=== PATIENT | female | born 1975 | race Caucasian/White ===

== ENCOUNTER 2019-12-14 07:08 | Outpatient (CLI) | payer OTHER, SELFPAY | END 2019-12-14 07:28 | PROVIDERS: Visit Provider Pediatrics Pediatric Rheumatology | DX: Z02.71 Encounter for disability determination (principal); R06.09 Other forms of dyspnea | CPT/HCPCS: 94618 ==

== ENCOUNTER 2020-04-12 12:58 | Emergency (ER) | payer MEDICAID, SELFPAY ==
[2020-04-12 13:06] VITALS: BP 159/104; PULSE 105; RESP 18; TEMP 36.6; O2SAT 98
[2020-04-12 13:12] VITALS: BP 119/81
--- NOTE | 2020-04-12 13:30 | DI.RAD_ITS ---
EXAM: XR SACRUM COCCYX CLINICAL HISTORY: fall/pain. TECHNIQUE: 2D digital imaging was performed. COMPARISON: CR LUMBAR SPINE AP, LAT from 08/04/2013 FINDINGS: BONES: No acute fracture is present. No bony destructive lesion is seen. There is no change in alignm ent of the sacrum compared to the examination from 08/04/2013. JOINTS: No dislocation present. The sacroiliac joints are well maintained. SOFT TISSUE: Atherosclerosis of the abdominal aorta is noted. IMPRESSION: No acute fracture or subluxation. DATA REPOSITORY: RADIATION DOSE DELIVERED:
--- NOTE | 2020-04-12 13:30 | DI.RAD_ITS ---
EXAM: XR LUMBAR SPINE COMPLETE CLINICAL HISTORY: fall/pain. TECHNIQUE: 2D digital imaging was performed. COMPARISON: No exams were available for comparison FINDINGS: There are 5 lumbar type vertebral bodies. There is no spondylolysis or spondylolisthesis. No acute fractures or subluxations are seen. Mild degenerative changes are present throughout the lumbar spin e. The bones are normally mineralized. Atherosclerosis of the abdominal aorta is noted. IMPRESSION: No acute fractures or subluxations in the lumbar spine. DATA REPOSITORY: RADIATION DOSE DELIVERED:
--- NOTE | 2020-04-12 14:18 | ED.GENADUL_ITS ---
Discharge Plan Disposition Patient Disposition: HOME Condition: Stable Discharge Details Clinical Impression: Lumbar pain Primary Care Provider: Jenn,Local ED Provider: Duncan Durand Home Meds and New Rx's Prescriptions: New oxycodone-acetaminophen [Percocet] 5-325 mg tablet 1 tab PO Q8H PRNQty: 8 RF: 0 Continued epinephrine [EpiPen 2-Seven] 0.3 MG/0.3 ML auto-injector 0.3 mg IM DIRECTED PRNRF: 0 isosorbide mononitrate 30 mg tablet extended release 24 hr 30 mg PO DAILY RF: 0 melatonin 3 mg Tablet 9 mg PO HS RF: 0 clopidogrel 75 mg tablet 75 mg PO DAILY RF: 0 acetaminophen [Tylenol Extra Strength] 500 mg Tablet 1,000 mg PO Q4-5H RF: 0 nitroglycerin 0.4 mg Tablet, Sublingual 0.4 mg sublingual Q5 MIN PRN X3 PRNRF: 0 hydroxyzine HCl 25 mg tablet 25 mg PO HS RF: 0 ezetimibe 10 mg tablet 10 mg PO HS RF: 0 rosuvastatin 40 mg tablet 40 mg PO DAILY RF: 0 diclofenac sodium [Voltaren] 1 % Gel 3 applic TOPICAL TID RF: 0 Entresto 24-26 mg Tablet 0.5 tab PO BID RF: 0 aspirin 81 mg Capsule,Delayed Release(Dr/Ec) 81 mg PO DAILY RF: 0 furosemide 20 mg tablet See Rx Instructions .ROUTE .COMPLEX PRNRF: 0 metoprolol succinate [Toprol XL] 25 mg Tablet Extended Release 24 Hr 25 mg PO BID RF: 0 Discharge Instructions Instructions: Back Pain (ED) Additional Instructions: X-rays were unremarkable. Percocet as directed, may cause drowsiness and/or constipation. Continue taking your spvs-hiu-hatooff stool softener. Be sure to not take any more than a total of 4 g of Tylenol by mouth per day. [id number] Lidoderm patches as directed for discomfort. Cool and/or warm compresses every 2 hours for 20 minutes. Gentle stretching as tolerated. Please watch for new or worsening symptoms and return to the ER for any concerns. Lastly, I would like you to reach out your primary care provider later today or tomorrow for prompt outpatient reevaluation. Medical Decision Making 44-year-old female presents complaining of lumbar pain status post mechanical fall yesterday evening. Denies any distracting injuries. She has neuro, vascular, tendon intact. No evidence of midline point tenderness, cauda equina, radiculopathy, etc. She has taken Tylenol without much relief. Pelvis appears unremarkable. Will obtain x-ray of her lumbar spine, coccyx, sacrum. She does report that standing makes the pain better, sitting makes the pain worse. She cannot take anti-inflammatory medication. X-ray of lumbar spine, coccyx, sacrum, read by radiology as no acute abnormality. Discussed x-ray findings with patient. She is relieved. Will provide a short- term prescription of Percocet for her. She already takes [id number] stool softeners. She has been taking Tylenol, she will not take more than 4 g total p er 1 given day. She cannot take anti-inflammatories. We discussed cool compresses, warm compresses, gentle stretching. She will also use [id number] Lidoderm patch. Patient is neurologically intact. No acute distress. No additional questions or concerns, comfortable discharge. Medical Records Medical records reviewed: Yes I reviewed the patient's medical records. HPI General Mode of arrival: ambulatory . Date/Time Provider Initiated Documentation: 04/12/20 13:16 . Limitations to Documentation: no limitations . Information obtained by: patient . HPI Narrative: This is a 44-year-old female, past medical history that includes TX, CABG, takes Plavix, obesity, chronic back pain, seizures, presenting to the ER for evaluation of back pain. She states that yesterday evening she was wearing slippers, slipped on ice on stairs, landing directly onto her lower back. She attempted to catch herself with her arms and sophia her shoulders. She reports that her shoulders are sore but not her reason to come to the ER. She reports that she has diffuse lower back pain but no other distracting injuries. Denies radiation of her pain, numbness, tingling, weakness in her lower extremities. She did not strike her head. No LOC, headache, neck pain. Denies bowel or bladder incontinence or retention. Has taken [id number] Tylenol without control of her symptoms. She states that she cannot take anti-inflammatories. Related Data Home Medications Medication Instructions Recorded Confirmed epinephrine [EpiPen 2-Seven] 0.3 mg IM DIRECTED PRN 04/16/16 04/12/20 Entresto 0.5 tab PO BID 04/12/20 04/12/20 acetaminophen [Tylenol Extra 1,000 mg PO Q4-5H 04/12/20 04/12/20 Strength] aspirin 81 mg PO DAILY 04/12/20 04/12/20 clopidogrel 75 mg PO DAILY 04/12/20 04/12/20 diclofenac sodium [Voltaren] 3 applic TOPICAL TID 04/12/20 04/12/20 ezetimibe 10 mg PO HS 04/12/20 04/12/20 furosemide See Rx Instructions .ROUTE 04/12/20 04/12/20 .COMPLEX PRN hydroxyzine HCl 25 mg PO HS 04/12/20 04/12/20 isosorbide mononitrate 30 mg PO DAILY 04/12/20 04/12/20 melatonin 9 mg PO HS 04/12/20 04/12/20 metoprolol succinate [Toprol XL] 25 mg PO BID 04/12/20 04/12/20 nitroglycerin 0.4 mg SUBLINGUAL Q5 MIN PRN X3 PRN 04/12/20 04/12/20 oxycodone-acetaminophen [Percocet] 1 tab PO Q8H PRN #8 tab 04/12/20 rosuvastatin 40 mg PO DAILY 04/12/20 04/12/20 Previous Rx's Medication Instructions Recorded oxycodone-acetaminophen [Percocet] 1 tab PO Q8H PRN #8 tab 04/12/20 Allergies Allergy/AdvReac Type Severity Reaction Status Date / Time bee pollen Allergy Severe Anaphylaxsi Unverified 04/12/20 13:11 s mushroom Allergy Severe Anaphylaxsi Unverified 04/12/20 13:11 s Penicillins Allergy Severe Anaphylaxsi Unverified 04/12/20 13:11 s doxycycline Allergy Intermediate Hives Unverified 04/12/20 13:11 sumatriptan [From Imitrex] Allergy Intermediate Skin Rash Unverified 04/12/20 13:11 sumatriptan succinate Allergy Intermediate Skin Rash Unverified 04/12/20 13:11 [From Imitrex] tramadol Allergy Intermediate Hives Unverified 04/12/20 13:11 erythromycin base Allergy Mild Hives Unverified 04/12/20 13:11 [Erythromycin Base] General Stated Complaint: Nk/Back Pain JACIEL: 3 Review of Systems Constitutional Constitutional: Denies headache(s) ENT Ears, Nose, Mouth, and Throat: Denies headache(s) and Denies neck pain Cardiovascular Cardiovascular: Denies chest pain and Denies dyspnea Respiratory Respiratory: Denies dyspnea Gastrointestinal Gastrointestinal: Denies abdominal pain, Denies nausea and Denies vomiting Musculoskeletal Musculoskeletal: Reports back pain, Denies neck pain, Denies numbness and Denies tingling Integumentary/Breasts Skin/Breast: Denies rash Neurologic Neurologic: Denies headache(s), Denies numbness and Denies tingling [facility] Medical History Chronic back pain Hidradenitis axillaris Obesity Seizures Surgical History Abdominal hysterectomy Appendectomy Bilateral salpingectomy with oophorectomy section Cholecystectomy Social History Smoking/Tobacco Use Status: Former Tobacco Use Smoking risk assessment performed?: Yes Alcohol Intake: never Drug use: Never Substance use type: does not use Do you feel safe at home: Yes Do you feel safe in your relationship?: Yes Exam Const General: cooperative, healthy appearing, comfortable and no acute distress Orientation: alert and awake [facility] Head: normal to inspection, normocephalic and atraumatic Eyes General: appearance normal, both eyes and all related structures Conjunctivae: conjunctivae normal Sclera: sclerae normal Neck Neck: normal visual inspection, full ROM, trachea midline, supple and nontender Resp Effort & Inspection: normal respiratory effort and able to speak in complete sentences Auscultation: clear to auscultation bilaterally Cardio Rate: regular rate Rhythm: regular rhythm GI Inspection: obesity Palpation: soft and nontender Back/Spine/Pelvis Back: back tenderness Pelvis: no pain with anterior-posterior compression and no pain with lateral compression Back/spine/pelvis image: 1. Diffuse discomfort, no bony point tenderness. 2. Hematoma-contusion. Skin intact Skin General skin exam: no rashes or lesions noted Neuro General: patient alert, patient awake, moves all extremities and no focal motor deficits Cognition: normal cognition Speech: speech normal Gait: antalgic Motor: muscle tone normal throughout Sensory Exam: no sensory deficits noted Extrem General: normal to inspection, full ROM, capillary refill normal, no pedal edema and no calf tenderness Psych Appearance: grossly normal Mental Status: mental status grossly normal Course Vital Signs Vital signs: Vital Signs Temperature 36.6 C 04/12/20 13:06 Pulse 105 H 04/12/20 13:06 Respiratory Rate 18 04/12/20 13:06 Blood Pressure 159/104 H 04/12/20 13:06 Pulse Oximetry 98 04/12/20 13:06 Temperature 36.6 C 04/12/20 13:06 Temperature Source Skin 04/12/20 13:06 Pulse 105 H 04/12/20 13:06 Respiratory Rate 18 04/12/20 13:06 Respiratory Effort Non-Labored 04/12/20 13:10 Blood Pressure 119/81 04/12/20 13:12 Blood Pressure Position Standing 04/12/20 13:06 Pulse Oximetry 98 04/12/20 13:06 Oxygen Delivery Method Room Air 04/12/20 13:06 Oxygen Flow Rate 0 04/12/20 13:06 Pain Level 8 04/12/20 13:50
[2020-04-12 14:28] VITALS: PULSE 95; RESP 14; TEMP 36.7; O2SAT 98
== END 2020-04-12 14:30 | disposition home or self-care (01) ==
PROVIDERS: Emergency Provider Physician Assistant
DX: M54.5 Low back pain (principal); M53.3 Sacrococcygeal disorders, not elsewhere classified; W00.1XXA Fall from stairs and steps due to ice and snow, initial encounter
CPT/HCPCS: 99284; 72110; 72220

== ENCOUNTER 2020-04-30 11:52 | Emergency (ER) | payer MEDICAID, SELFPAY ==
--- NOTE | 2020-04-30 11:53 | ED.GENADUL_ITS ---
Discharge Plan Disposition Patient Disposition: HOME Condition: Fair Discharge Details Clinical Impression: Lumbar pain, Tachycardia Primary Care Provider: Jenn,Local ED Provider: Samantha Hdz Home Meds and New Rx's Prescriptions: New oxycodone 5 mg capsule 5 mg PO TID PRN (Reason: pain) Qty: 7 RF: 0 Continued epinephrine [EpiPen 2-Seven] 0.3 MG/0.3 ML auto-injector 0.3 mg IM DIRECTED PRNRF: 0 isosorbide mononitrate 30 mg tablet extended release 24 hr 30 mg PO DAILY RF: 0 melatonin 3 mg Tablet 9 mg PO HS RF: 0 clopidogrel 75 mg tablet 75 mg PO DAILY RF: 0 acetaminophen [Tylenol Extra Strength] 500 mg Tablet 1,000 mg PO Q4-5H RF: 0 nitroglycerin 0.4 mg Tablet, Sublingual 0.4 mg sublingual Q5 MIN PRN X3 PRNRF: 0 hydroxyzine HCl 25 mg tablet 25 mg PO HS RF: 0 ezetimibe 10 mg tablet 10 mg PO HS RF: 0 rosuvastatin 40 mg tablet 40 mg PO DAILY RF: 0 Entresto 24-26 mg Tablet 0.5 tab PO BID RF: 0 aspirin 81 mg Capsule,Delayed Release(Dr/Ec) 81 mg PO DAILY RF: 0 metoprolol succinate [Toprol XL] 25 mg Tablet Extended Release 24 Hr 25 mg PO BID RF: 0 oxycodone-acetaminophen [Percocet] 5-325 mg tablet 1 tab PO Q8H PRNQty: 8 RF: 0 Discontinued tramadol 50 mg tablet 50 mg PO Q6H RF: 0 Discharge Instructions Instructions: Low Back Strain (ED) Additional Instructions: I am very concerned regarding her persistent severe back pain. I do feel that further imaging is warranted. You have declined this today. You may return anytime for further evaluation and imaging. I am also concerned that you are quite tachycardic. This may be associated with your metoprolol but also could be associated with something more serious in your back. I did speak with your primary care. They would like you to stop the tramadol. They are okay with you taking small amounts of oxycodone but would like for you to taper off of this medication. Please continue with nonnarcotic options first including Tylenol and lidocaine patches. Please encourage gentle stretching. Do not drive while taking this medication. Beginning tomorrow, please cut pills in have and take 2.5mg three times per day for pain not relieved by non-narcotic medications. Please call your primary care on Saturday to schedule appointment this week for reevaluation. If you develop fever/chills, increased pain, change in bowel or bladder habits, weakness or other new/worsening symptoms please seek care urgently once again. Referrals: KYMBERLY LOBATO MD [Other] Medical Decision Making Patient is a 44 year old female presenting for reevaluation and prescription refill for lumbar back pain. Patient was seen here on 04/12/20 after mechanical fall. At that time, she had a hematoma over lower lumbarspine/sacrum. X-rays were obtained at that time with no fracture or subluxation noted. Patient has had severe pain since then. Was continued on oxycodone by PCP at [facility] since then. She has been evaluated by them, was last seen on04/28/20. Patient was transitioned to Tramadol but feels that this is not working well for her pain and causing GI upset. Patient is scheduled for MRI on 05/18/20 for further evaluation. She states she has had intermittent tingling in the right thigh, none currently. No fevers/chills. No change in bowel or bladder habits. No rash. On exam, patient appears anxious. She appears uncomfortable with movement but comfortable and standing upright. Patient is neurologically tachycardic with a heart rate of 130. She reports she did not take her metoprolol yet today. She appears nontoxic. She does have a focal area of swelling with no skin discoloration. No fluctuance. It is difficult to palpate the spine in this region secondary to the patient's discomfort as well as her body habitus. No saddle paresthesias. Good strength in her lower extremities. Her reflexes are limited but patient reports that she has had diminished patellar reflexes for years and that this is not unusual for her. I am concerned about possible underlying pathology. Concern with the patient waiting for her MRI that is not able to be completed until next month. I did recommend CT imaging. Also discussed labs with the patient she is declining. Patient would like her oxycodone refilled that she has not tolerated tramadol well and is also not sufficient for her pain. I did review the primary care note at length from [facility]. Consulted with Dr. Faye is covering for the primary care group. We did discuss my concern for her tachycardia as well as her persistent need for narcotics. There was concern for the length of time that she has been on the oxycodone and received primary care note, is for this reason the patient was transition to tramadol. We discussed that the patient could be potentially withdrawing from the oxycodone as she has not been using the tramadol. Primary care physician for this is unlikely based on the amount that she was using on a daily basis but did feel that refill of a smaller dosage would be appropriate in case this is the source of some the patient symptoms. I did express my concern with the patient not being willing to undergo go imaging or work-up here. Patient and I discussed these recommendations. She remains tachycardic. Patient feels that this is likely from her metoprolol. I again advised on further work-up which she continues to decline. She states her ride is the reason for needing to leave. She continues to appear anxious and nontoxic. She is afebrile. She is aware that she may return anytime for continued evaluation. Will prescribe #7 5 mg tablet of oxycodone. We did discuss appropriate usage, not to drive and to keep these in a safe spot. I advised that she can continue with the Tylenol. She is unable to take anti- inflammatories. We did discuss appropriate dosing. I also advised topical options to help with her pain. I advised that her primary care would not be refilling the oxycodone past this point based on our discussion but that she will need to follow-up with them next week. She is aware of my concerns and differential associated with her back pain. She would prefer to wait for the MRI. Return precautions were discussed. All of her questions and concerns were addressed and she is in agreement with this plan. HPI General Mode of arrival: ambulatory . Date/Time Provider Initiated Documentation: 04/30/20 11:53 . Limitations to Documentation: no limitations . Information obtained by: patient, RN notes reviewed and old records reviewed . History of Present Illness 44 year old F presents to the emergency department with the chief complaint of low back pain, described as severe, with intensity rated at 9. Quality is described as stabbing, and is localized to the back. Patient reports no radiation. Patient started experiencing this week(s) and it has been constant. Immobilization improves symptom(s), (standing still and upright) and Medication improves symptom(s), (percocet) Movement worsens symptoms . Patient notes denies chest pain, cough, fever/ chills, nausea/vomiting, rash and weakness. Patient did receive the following treatments prior to arrival, other (tramadol) Related Data Home Medications Medication Instructions Recorded Confirmed epinephrine [EpiPen 2-Seven] 0.3 mg IM DIRECTED PRN 04/16/16 04/30/20 Entresto 0.5 tab PO BID 04/12/20 04/30/20 acetaminophen [Tylenol Extra 1,000 mg PO Q4-5H 04/12/20 04/30/20 Strength] aspirin 81 mg PO DAILY 04/12/20 04/30/20 clopidogrel 75 mg PO DAILY 04/12/20 04/30/20 ezetimibe 10 mg PO HS 04/12/20 04/30/20 hydroxyzine HCl 25 mg PO HS 04/12/20 04/30/20 isosorbide mononitrate 30 mg PO DAILY 04/12/20 04/30/20 melatonin 9 mg PO HS 04/12/20 04/30/20 metoprolol succinate [Toprol XL] 25 mg PO BID 04/12/20 04/30/20 nitroglycerin 0.4 mg SUBLINGUAL Q5 MIN PRN X3 PRN 04/12/20 04/30/20 oxycodone-acetaminophen [Percocet] 1 tab PO Q8H PRN #8 tab 04/12/20 04/30/20 rosuvastatin 40 mg PO DAILY 04/12/20 04/30/20 oxycodone 5 mg PO TID PRN #7 cap 04/30/20 Previous Rx's Medication Instructions Recorded oxycodone-acetaminophen [Percocet] 1 tab PO Q8H PRN #8 tab 04/12/20 oxycodone 5 mg PO TID PRN #7 cap 04/30/20 Allergies Allergy/AdvReac Type Severity Reaction Status Date / Time bee pollen Allergy Severe Anaphylaxsi Unverified 04/30/20 12:03 s mushroom Allergy Severe Anaphylaxsi Unverified 04/30/20 12:03 s Penicillins Allergy Severe Anaphylaxsi Unverified 04/30/20 12:03 s doxycycline Allergy Intermediate Hives Unverified 04/30/20 12:03 sumatriptan [From Imitrex] Allergy Intermediate Skin Rash Unverified 04/30/20 12:03 sumatriptan succinate Allergy Intermediate Skin Rash Unverified 04/30/20 12:03 [From Imitrex] tramadol Allergy Intermediate Hives Unverified 04/30/20 12:03 erythromycin base Allergy Mild Hives Unverified 04/30/20 12:03 [Erythromycin Base] General JACIEL: 3 Review of Systems Constitutional Constitutional: Reports as per HPI, Denies chills, Denies fatigue, Denies fever(s), Denies frequent falls and Denies headache(s) Eyes Eyes: Denies change in vision ENT Ears, Nose, Mouth, and Throat: Denies headache(s) Cardiovascular Cardiovascular: Denies chest pain, Denies dyspnea and Denies dyspnea on exertion Respiratory Respiratory: Denies cough, Denies dyspnea and Denies dyspnea on exertion Gastrointestinal Gastrointestinal: Denies abdominal pain, Denies change in bowel habits and Denies fecal incontinence Genitourinary Genitourinary: Reports as per HPI, Denies urinary incontinence and Denies urinary hesitancy Musculoskeletal Musculoskeletal: Reports as per HPI, Reports back pain, Denies muscle weakness, Denies numbness, Denies radiating pain into limb, Reports stiffness and Denies tingling Integumentary/Breasts Skin/Breast: Reports as per HPI and Denies rash Neurologic Neurologic: Reports as per HPI, Denies frequent falls, Denies headache(s), Denies localized weakness, Denies numbness, Denies radicular pain, Denies senso ry deficit, Denies tingling and Denies paresthesias Endocrine Endocrine: Denies fatigue PFSH Medical History Chronic back pain Hidradenitis axillaris Obesity Seizures Surgical History Abdominal hysterectomy Appendectomy Bilateral salpingectomy with oophorectomy section Cholecystectomy Social History Smoking/Tobacco Use Status: Former Tobacco Use Smoking risk assessment performed?: Yes Alcohol Intake: never Drug use: Never Substance use type: does not use Do you feel safe at home: Yes Do you feel safe in your relationship?: Yes Exam Const General: cooperative, healthy appearing, uncomfortable, no acute distress, well developed, well groomed and anxious Nutritional Appearance: well nourished and obese Orientation: alert and awake Eyes General: appearance normal, both eyes and all related structures Neck Neck: normal visual inspection, full ROM, no lymphadenopathy and no meningeal signs Resp Effort & Inspection: normal respiratory effort and able to speak in complete sentences Auscultation: clear to auscultation bilaterally, no rales, no rhonchi and no wheezes Cardio Rate: regular rate Rhythm: regular rhythm Heart Sounds: S1 normal and S2 normal Back/Spine/Pelvis Back: no CVA tenderness Cervical Spine: normal cervical lordosis, cervical ROM normal, No cervical spinal tenderness and No step off deformity Thoracic/Lumbar Spine: No thoracic and lumbar spine normal to inspection, No thoraco-lumbar ROM normal (rotational movements intact, forward flexion or extionsion limited), No thoracic spinal tenderness and lumbar spinal tenderness (focal swelling and tenderness lower lumbar spine/sacrum) Sacroiliac joints: bilaterally nontender Sacrum: no ecchymosis, no erythema, swelling and tenderness Back/spine/pelvis image: 1. focal area of swelling. No erythema, warmth, fluctuance. Very tender with gentle palpation. Unable to palpate spine over this area secondary to swelling and tenderness. Skin General skin exam: no rashes or lesions noted Neuro General: patient alert and patient awake Cognition: normal cognition Speech: speech normal Gait: normal gait Motor: muscle tone normal throughout, strength 5/5 throughout, no movement abnormalities noted and no fasciculations Sensory Exam: no sensory deficits noted (no saddle paresthesias) DTR's: Rt Patellar: 0 and Lt Patellar: 0 Extrem General: normal to inspection, full ROM, capillary refill normal, no joint enlar gement, no pedal edema, no calf tenderness and normal gait Psych Appearance: grossly normal and well kempt Mental Status: mental status grossly normal Speech and Movement: speech and movement normal
[2020-04-30 11:59] VITALS: BP 124/93; PULSE 130; RESP 16; TEMP 37; O2SAT 99
[2020-04-30 12:43] VITALS: PULSE 132
--- NOTE | 2020-04-30 12:44 | NUR.NOTE ---
pt fully dressed, she states that her ride is waiting for her. when asked, she states that she did take her morning medication. she thinks that her HR is high because of the pain in her low back. she refused a cat scan. Nursing Note:
[2020-04-30 13:12] VITALS: BP 145/112; PULSE 135; RESP 16; TEMP 37; O2SAT 99
== END 2020-04-30 13:21 | disposition home or self-care (01) ==
PROVIDERS: Emergency Provider Physician Assistant
DX: M54.5 Low back pain (principal); R00.0 Tachycardia, unspecified
CPT/HCPCS: 99283

== ENCOUNTER 2021-02-20 12:48 | Emergency (ER) | payer MEDICAID, SELFPAY ==
[2021-02-20 12:59] VITALS: BP 149/103; PULSE 99; RESP 18; TEMP 36.4; O2SAT 99
--- NOTE | 2021-02-20 13:00 | ED.GENADUL_ITS ---
Discharge Plan Disposition Patient Disposition: HOME Condition: Stable Discharge Details Clinical Impression: Cough Primary Care Provider: Jenn,Local ED Provider: Duncan Durand Home Meds and New Rx's Prescriptions: Continued epinephrine [EpiPen 2-Seven] 0.3 MG/0.3 ML auto-injector 0.3 mg IM DIRECTED PRNRF: 0 isosorbide mononitrate 30 mg tablet extended release 24 hr 30 mg PO DAILY RF: 0 melatonin 3 mg Tablet 9 mg PO HS RF: 0 clopidogrel 75 mg tablet 75 mg PO DAILY RF: 0 acetaminophen [Tylenol Extra Strength] 500 mg Tablet 1,000 mg PO Q4-5H RF: 0 nitroglycerin 0.4 mg Tablet, Sublingual 0.4 mg sublingual Q5 MIN PRN X3 PRNRF: 0 hydroxyzine HCl 25 mg tablet 50 mg PO HS RF: 0 ezetimibe 10 mg tablet 10 mg PO HS RF: 0 rosuvastatin 40 mg tablet 40 mg PO DAILY RF: 0 Entresto 24-26 mg Tablet 0.5 tab PO BID RF: 0 aspirin 81 mg Capsule,Delayed Release(Dr/Ec) 81 mg PO DAILY RF: 0 metoprolol succinate [Toprol XL] 25 mg Tablet Extended Release 24 Hr 25 mg PO DAILY RF: 0 magnesium oxide 400 mg (241.3 mg magnesium) tablet 400 mg PO DAILY RF: 0 Discharge Instructions Instructions: Acute Cough (ED) Additional Instructions: Chest x-ray is clear, no evidence of pneumonia. You had a negative Covid test last Saturday. Your rapid strep test is also negative, culture pending. This is likely viral syndrome, treat symptoms with accl-osn-kykilmd medications as directed. Please watch for new or worsening symptoms and return to the ER for any concerns. Lastly, I do recommend reaching out your primary care provider regarding your ER visit, ongoing symptoms, and need for outpatient reevaluation Medical Decision Making 45-year-old female, former smoker, presents with URI-like symptoms over the past 7-10 days, family all has similar symptoms. She had a negative Covid test last. Clinically she appears well, nontoxic, no clear signs of bacterial infection. She is afebrile, O2 sat are 99% on room air. Given her sore throat will obtain a rapid strep and given her persistent cough will obtain a chest x-ray. We did discuss that her test on Saturday could have been a false negative and I did offer to obtain another Covid swab at this time the patient declines. She does tell me she is fully vaccinated Chest x-ray negative per radiology Negative rapid strep Discussed findings with patient. No clear source of bacterial infection, no clear indication to initiate antibiotic therapy. Recommend continuing to treat with oawg-sec-[id number] medications for symptomatic control. Standard discharge and return precautions provided This documentation was generated using [employer] dictation system, please disregard any oddities of phrase or misspellings. Medical Records Medical records reviewed: Yes I reviewed the patient's medical records. Imaging Data Radiologic Study: Attestation: I personally reviewed and interpreted this imaging study as follows: Imaging: X-Ray Radiologist's impression: EXAM XR PORTABLE CHEST AP CLINICAL HISTORY [ cough. ] [] TECHNIQUE 2D digital imaging was performed. COMPARISON [CR RIGHT SHOULDER COMPLETE from 04/02/2016] [] FINDINGS [Sternotomy wires and evidence previous CABG. Heart size upper normal.]. The mediastinum is not widened. [Lungs are clear. No infiltrates nor obvious pleural effusions.] [] [] IMPRESSION [No acute pulmonary findings on this single AP portable view of the chest.][] [Sternotomy. CABG. No pulmonary. Lab Data Lab results reviewed: Yes I reviewed the patient's lab results. Labs: neg rapid strep HPI General Mode of arrival: ambulatory . Date/Time Provider Initiated Documentation: 02/20/21 12:57 . Limitations to Documentation: no limitations . Information obtained by: patient . HPI Narrative: This is a 45-year-old female, former smoker, history of cardiac bypass, takes Plavix daily, presents to the ER concerned that she may have pneumonia and/or bronchitis. Patient states that for a little over a week she has had a dry cough, feeling tired, headache, right ear pain, sore throat. She did have a negative Covid test last Saturday. She states that given her cardiac history her okim-niq-wdclfcu medications are not limited, has tried Mucinex with little relief. Her entire family at home has similar symptoms. She states that given her cardiac history she simply wants to be sure there is nothing more serious wrong and that she does not require antibiotics. She denies any fever, chest pain, shortness of breath, abdominal pain, nausea, vomiting, dysuria, hematuria pain or swelling in her legs. Related Data Home Medications Medication Instructions Recorded Confirmed epinephrine [EpiPen 2-Seven] 0.3 mg IM DIRECTED PRN 04/16/16 02/20/21 Entresto 0.5 tab PO BID 04/12/20 02/20/21 acetaminophen [Tylenol Extra 1,000 mg PO Q4-5H 04/12/20 02/20/21 Strength] aspirin 81 mg PO DAILY 04/12/20 02/20/21 clopidogrel 75 mg PO DAILY 04/12/20 02/20/21 ezetimibe 10 mg PO HS 04/12/20 02/20/21 hydroxyzine HCl 50 mg PO HS 04/12/20 02/20/21 isosorbide mononitrate 30 mg PO DAILY 04/12/20 02/20/21 melatonin 9 mg PO HS 04/12/20 02/20/21 metoprolol succinate [Toprol XL] 25 mg PO DAILY 04/12/20 02/20/21 nitroglycerin 0.4 mg SUBLINGUAL Q5 MIN PRN X3 PRN 04/12/20 02/20/21 rosuvastatin 40 mg PO DAILY 04/12/20 02/20/21 magnesium oxide 400 mg PO DAILY 02/20/21 02/20/21 Allergies Allergy/AdvReac Type Severity Reaction Status Date / Time bee pollen Allergy Severe Anaphylaxsi Unverified 02/20/21 13:36 s mushroom Allergy Severe Anaphylaxsi Unverified 02/20/21 13:36 s Penicillins Allergy Severe Anaphylaxsi Unverified 02/20/21 13:36 s doxycycline Allergy Intermediate Hives Unverified 02/20/21 13:36 sumatriptan [From Imitrex] Allergy Intermediate Skin Rash Unverified 02/20/21 13:36 sumatriptan succinate Allergy Intermediate Skin Rash Unverified 02/20/21 13:36 [From Imitrex] tramadol Allergy Intermediate Hives Unverified 02/20/21 13:36 erythromycin base Allergy Mild Hives Unverified 02/20/21 13:36 [Erythromycin Base] General JACIEL: 3 Review of Systems Constitutional Constitutional: Reports fatigue, Denies fever(s) and Reports headache(s) ENT Ears, Nose, Mouth, and Throat: Reports headache(s) and Reports sore throat Cardiovascular Cardiovascular: Denies chest pain and Denies dyspnea Respiratory Respiratory: Reports cough and Denies dyspnea Gastrointestinal Gastrointestinal: Denies abdominal pain, Denies nausea and Denies vomiting Musculoskeletal Musculoskeletal: Denies back pain Integumentary/Breasts Skin/Breast: Denies rash Neurologic Neurologic: Reports headache(s) Endocrine Endocrine: Reports fatigue PFSH All Active Problems (Updated 02/20/21 @ 14:33 by JOSE Shetes) Cough (Acute) Medical History Chronic back pain Hidradenitis axillaris Obesity Seizures Surgical History Abdominal hysterectomy Appendectomy Bilateral salpingectomy with oophorectomy section Cholecystectomy Social History Smoking/Tobacco Use Status: Former Tobacco Use Smoking risk assessment performed?: Yes Alcohol Intake: never Drug use: Never Substance use type: does not use Do you feel safe at home: Yes Do you feel safe in your relationship?: Yes Exam Const General: cooperative, healthy appearing, comfortable and no acute distress Orientation: alert and awake HENLA Head: normal to inspection, normocephalic and atraumatic Ears: external ears normal, TM's normal bilaterally and EAC's normal General nose exam: external nose normal Face and sinus: normal facial exam Mouth: moist mucous membranes Throat: posterior oropharynx normal Eyes General: appearance normal, both eyes and all related structures Conjunctivae: conjunctivae normal Neck Neck: normal visual inspection, full ROM, no meningeal signs, trachea midline and supple Resp Effort & Inspection: normal respiratory effort, able to speak in complete sentences and cough Quality of cough: dry Auscultation: wheezes (Mild, scattered, mostly clear with cough) Cardio Rate: regular rate Rhythm: regular rhythm Skin General skin exam: no rashes or lesions noted Neuro General: patient alert, patient awake, moves all extremities and no focal motor deficits Sensory Exam: no sensory deficits noted Psych Appearance: grossly normal Mental Status: mental status grossly normal
--- NOTE | 2021-02-20 13:15 | DI.RAD_ITS ---
Exam(s) XR PORTABLE CHEST AP EXAM: XR PORTABLE CHEST AP CLINICAL HISTORY: cough. TECHNIQUE: 2D digital imaging was performed. COMPARISON: CR RIGHT SHOULDER COMPLETE from 04/02/2016 FINDINGS: Sternotomy wires and evidence previous CABG. Heart size upper normal.. The mediastinum is not widened. Lungs are clear. No infiltrates nor obvious pleural effusions. IMPRESSION: No acute pulmonary findings on this single AP portable view of the chest. Sternotomy. CABG. No pulmonary. DATA REPOSITORY: RADIATION DOSE DELIVERED: All CT scans at this facility use at least one of these dose optimization techniques: automated exposure control; mA and/or kV adjustment per patient size (includes targeted e xams where dose is matched to clinical indication); or iterative reconstruction.
== END 2021-02-20 15:03 | disposition home or self-care (01) ==
PROVIDERS: Emergency Provider Physician Assistant
DX: R05.1 Acute cough (principal); J02.9 Acute pharyngitis, unspecified; R51.9 Headache, unspecified; R53.83 Other fatigue
CPT/HCPCS: 87880; 99283; 71045

== ENCOUNTER 2023-09-10 15:19 | Emergency (ER) | payer MEDICAID, SELFPAY ==
[2023-09-10 15:21] VITALS: BP 157/94; PULSE 117; RESP 15; TEMP 36.8; O2SAT 94
--- NOTE | 2023-09-10 15:36 | ED.GENADUL_ITS ---
Discharge Plan Disposition Patient Disposition: Home Condition: Stable Discharge Details Clinical Impression: Shoulder arthritis, Sacral contusion Primary Care Provider: Jenn,Local ED Provider: Federico Pan Home Meds and New Rx's Prescriptions: New diclofenac sodium 1 % gel 2 g topical QID Qty: 100 0RF Rx Instructions: apply to single elbow, wrist or hand; for hand includes palm/fingers/back of hand Continued epinephrine [EpiPen 2-Seven] 0.3 MG/0.3 ML auto-injector 0.3 mg IM DIRECTED PRN isosorbide mononitrate 30 mg tablet extended release 24 hr 30 mg PO DAILY Patient Comments: take 1 tablet by mouth every morning melatonin 3 mg Tablet 9 mg PO HS clopidogrel 75 mg tablet 75 mg PO DAILY Patient Comments: take 1 tablet by mouth once daily acetaminophen [Tylenol Extra Strength] 500 mg Tablet 1,000 mg PO Q4-5H nitroglycerin 0.4 mg Tablet, Sublingual 0.4 mg sublingual Q5 MIN PRN X3 PRN hydroxyzine HCl 25 mg tablet 50 mg PO HS Patient Comments: TAKE 1 TABLET BY MOUTH NIGHTLY NEEDED FOR ANXIETY AND SLEEP ezetimibe 10 mg tablet 10 mg PO HS Patient Comments: take 1 tablet by mouth nightly rosuvastatin 40 mg tablet 40 mg PO DAILY Patient Comments: take 1 tablet by mouth once daily Entresto 24-26 mg Tablet 0.5 tab PO BID aspirin 81 mg Capsule,Delayed Release(Dr/Ec) 81 mg PO DAILY metoprolol succinate [Toprol XL] 25 mg Tablet Extended Release 24 Hr 25 mg PO DAILY magnesium oxide 400 mg (241.3 mg magnesium) tablet 400 mg PO DAILY Discharge Instructions Instructions: Osteoarthritis, Diclofenac (Topical), Coccyx Injury, Minor Contusion ED Additional Instructions: You were seen in the emergency department for your acute on chronic shoulder pain as well as falling with an injury to your tailbone, there is no fracture to your lumbar spine, sacrum or coccyx on CT scan and there is no fracture or major abnormality of your shoulder that shows chronic arthritic changes. It is possible that you have a rotator cuff tear but that would need to be evaluated by orthopedics as an outpatient and they can order an MRI at that time if needed. Please take 1000 mg of Tylenol every 6 hours like clockwork, I am sending a prescription for topical Voltaren gel which is a topical anti- inflammatory that you can use while on Plavix, you can use this to areas of pain 4 times per day. I am sending home with a short to go pack of hydrocodone- please note this has 325 mg of Tylenol it. Please rest and ice the areas of pain frequently over the next few days, applied aluv-lxi-whxelaa lidocaine patches to areas of pain for 12 hours each day. Please return to the emergency department for inability to use your left upper extremity, worsening tailbone pain especially with complete urinary retention, loss of bowel in your pants, numbness to the genitals. Stand Alone Forms: Physical Therapy Referral Referrals: [facility] [Provider Group] Discharge Data Discharge Date/Time-TO BE ENTERED AT DEPARTURE: 09/10/23 17:48 HPI General Date/Time Provider Initiated Documentation: 09/10/23 15:36 . HPI Narrative: 47 year-old female presents to ED today by POV/ambulating with a chief complaint of acute on chronic L shoulder pain, and tailbone pain with onset yesterday at 1800 while moving some stuff into an attic, felt her shoulder give out- then fell to tailbone on a cinder block. Quality described as pain and swelling to tailbone, straining type pain to shoulder, no radiation to numbness/tingling, urinary retention, bowel incontinence, groin numbness, inability to range the shoulder. Severity is described as severe. Palliating factors include Aleve without relief. Provoking factors include nothing specific. Patient not anticoagulated. Related Data Home Medications Medication Instructions Recorded Confirmed epinephrine 0.3 mg/0.3 mL 0.3 mg IM DIRECTED PRN 04/16/16 02/20/21 injection, auto-injector (EpiPen 2-Seven) acetaminophen 500 mg tablet 1,000 mg PO Q4-5H 04/12/20 02/20/21 (Tylenol Extra Strength) aspirin 81 mg capsule,delayed 81 mg PO DAILY 04/12/20 02/20/21 release clopidogrel 75 mg tablet 75 mg PO DAILY 04/12/20 02/20/21 ezetimibe 10 mg tablet 10 mg PO HS 04/12/20 02/20/21 hydroxyzine HCl 25 mg tablet 50 mg PO HS 04/12/20 02/20/21 isosorbide mononitrate 30 mg 30 mg PO DAILY 04/12/20 02/20/21 tablet,extended release 24 hr melatonin 3 mg tablet 9 mg PO HS 04/12/20 02/20/21 metoprolol succinate 25 mg 25 mg PO DAILY 04/12/20 02/20/21 tablet,extended release 24 hr (Toprol XL) nitroglycerin 0.4 mg sublingual 0.4 mg sublingual Q5 MIN PRN X3 PRN 04/12/20 02/20/21 tablet rosuvastatin 40 mg tablet 40 mg PO DAILY 04/12/20 02/20/21 sacubitril 24 mg-valsartan 26 mg 0.5 tab PO BID 04/12/20 02/20/21 tablet (Entresto) magnesium oxide 400 mg (241.3 mg 400 mg PO DAILY 02/20/21 02/20/21 magnesium) tablet diclofenac sodium 1 % topical gel 2 g topical QID #100 grams 09/10/23 Previous Rx's Medication Instructions Recorded diclofenac sodium 1 % topical gel 2 g topical QID #100 grams 09/10/23 Allergies Allergy/AdvReac Type Severity Reaction Status Date / Time bee pollen Allergy Severe Anaphylaxsi Unverified 02/20/21 13:36 s mushroom Allergy Severe Anaphylaxsi Unverified 02/20/21 13:36 s Penicillins Allergy Severe Anaphylaxsi Unverified 02/20/21 13:36 s doxycycline Allergy Intermediate Hives Unverified 02/20/21 13:36 sumatriptan [From Imitrex] Allergy Intermediate Skin Rash Unverified 02/20/21 13:36 sumatriptan succinate Allergy Intermediate Skin Rash Unverified 02/20/21 13:36 [From Imitrex] tramadol Allergy Intermediate Hives Unverified 02/20/21 13:36 erythromycin base Allergy Mild Hives Unverified 02/20/21 13:36 [Erythromycin Base] General Stated Complaint: Orthopedic JACIEL: 4 Review of Systems All systems reviewed & are unremarkable except as noted in HPI and below Exam Narrative Exam Narrative: GENERAL APPEARANCE: Well-nourished, non-toxic, awake and alert, atraumatic, no acute distress. SKIN: Warm, pink, dry, intact, without rashes/lesions/ulcerations. HEAD: Normocephalic, atraumatic, normal hair distribution for gender/age. EYES: Pupils PERRLA, EOMs intact without nystagmus, normal conjunctiva, no exudates on lids/lashes. ENT: Nares patent, no circumoral cyanosis, no facial swelling NECK: Supple, trachea midline, painless cervical ROM. LUNGS/CHEST: Non-labored respirations, normal A/P diameter, symmetrical expansion, no chest wall deformity HEART (CV/PV): Regular rate, L radial pulse 2+, no peripheral edema, no JVD. ABDOMEN: Soft, non-distended, no guarding. MSK: Normal ROM, no swelling/deformity to bilateral UEs or LEs, moving all extremities without weakness, no cyanosis, spine midline without tenderness, normal curvature. L UE: Diffuse tenderness to the shoulder, patient somewhat intolerant of light palpation, accuses provider of being mean for performing normal palpation of shoulder. Had previously been ranging the shoulder well above her head while demonstrating the mechanism of injury. Left radial pulse 2+, sensation intact, no deformity, no crepitus. LUMBAR BACK: Mild swelling without overt ecchymosis at the lumbar spine, mild midline tenderness without crepitus or step-off, tenderness to some left of the lumbar sacral spine, sensation intact distal, has been ambulating normally NEURO: Mental Status AAOx4 - alert to person, place, time, events No facial droop, no forehead involvement. Motor: No focal weakness - strength 5/5 in bilateral UEs and LEs, proximal and distal, symmetric. Sensory: sensation intact to light touch globally. Gait normal: patient ambulated without ataxia into ED room. PSYCH: dysthymic, uncooperative, unpleasant, appropriate speech Course Vital Signs Vital signs: Vital Signs Temperature 36.8 C 09/10/23 15:21 Pulse 117 H 09/10/23 15:21 Respiratory Rate 09/10/23 15:21 Blood Pressure 157/94 H 09/10/23 15:21 Pulse Oximetry 94 09/10/23 15:21 Temperature 36.8 C 09/10/23 15:21 Temperature Source Temporal Artery Scan 09/10/23 15:21 Pulse 117 H 09/10/23 15:21 Respiratory Rate 15 09/10/23 15:21 Blood Pressure 157/94 H 09/10/23 15:21 Blood Pressure Position Sitting 09/10/23 15:21 Pulse Oximetry 94 09/10/23 15:21 Oxygen Delivery Method Room Air 09/10/23 15:21 Oxygen Flow Rate 0 09/10/23 15:21 Pain Level 7 09/10/23 15:21 Medical Decision Making This dictation utilizes [id number] dictation software and may contain unedite d grammatical errors. 47 year-old female presents to ED today by POV/ambulating with a chief complaint of acute on chronic L shoulder pain, R-hand dominant, and tailbone pain with onset yesterday at 1800 while moving some stuff into an attic, felt her shoulder give out- then fell to tailbone on a cinder block. Quality described as pain and swelling to tailbone, straining type pain to shoulder, no radiation to numbness/tingling, urinary retention, bowel incontinence, groin numbness, inability to range the shoulder. Severity is described as severe. Palliating factors include Aleve without relief. Provoking factors include nothing specific. Patients' medical history: Seizures, hydradenitis, chronic pain, chronic back pain- history of surgery to L shoulder- doesn't know what surgery. Family and social history: Noncontributory. Pertinent exam findings / vital signs include diffuse tenderness to the shoulder, patient not cooperative with adequate exam due to subjective pain, no deformity, patient had prior been demonstrating full range of motion in the shoulder, tenderness at the deltoid insertion, patient not tolerant of special tests, mild tenderness in the lower lumbar upper sacral vertebrae with mild swelling without overt ecchymosis, no step-offs or crepitus, ambulating normally. Differential / pathologies of concern include Contusion, Sprain/Strain, Rotator Cuff Arthropathy, Fracture. Diagnostic studies of: -CT Lumbar/Sacral/Coccyx Spine, XR L Shoulder - no acute fractures. -initially refused CT wanted XR, had discussion about sensitivity of CT for lumbar pathology - patient agreed. Interventions of: -counseled on RICE therapy, f/u with orthopaedics, provided norco 4 tab to go ED Course/Assessment/Plan: 47-year-old female presents with acute on chronic left shoulder pain after lifting above her head following her shoulder give out with prior unknown surgery. She then fell against a cinderblock injuring her tailbone area but has been otherwise neurovascularly intact here for pain control, would like to possibly see orthopedics. I counseled her on RICE therapy and therapeutic dosing of Tylenol and NSAIDs, provided Matewan to go, there is no acute fracture seen on x-ray, do not suspect rotator cuff arthropathy or new rotator cuff tear with her range of motion in exam room, she denies any symptoms of cauda equina. Findings not consistent with fracture, rotator cuff tear, vertebral fracture, cauda equina, neurovascular compromise. Disposition of sacral contusion, shoulder arthritis. Patient verbalized understanding of the plan and return to ED criteria and engaged in shared decision making. Medical Records Medical records reviewed: Yes I reviewed the patient's medical records. Imaging Data Radiologic Study: Attestation: I personally reviewed and interpreted this imaging study as follows: Imaging: X-Ray Radiologist's impression: EXAM: XR SHOULDER LT COMPLETE 2+V CLINICAL HISTORY: L shoulder pain. TECHNIQUE: 2D digital imaging was performed of the left shoulder. Five images were obtained. AP, Grashey, Y-view and axillary views were obtained. COMPARISON: CR XR PORTABLE CHEST AP from 02/20/2021 FINDINGS: BONES: No acute fracture is present. No bony destructive lesion is seen. Orthopedic anchors seen in the humeral head. JOINTS: No dislocation present. There are degenerative changes seen at both the acromioclavicular and glenohumeral joints. SOFT TISSUE: Status post CABG. Sternal wires are in place. IMPRESSION: 1. Degenerative changes seen in the shoulder. 2. No acute fracture or dislocation. Radiologic Study #2: Attestation: I personally reviewed and interpreted this imaging study as follows: Imaging: CT Scan Radiologist's impression: EXAM: CT LUMBAR SPINE WO CLINICAL HISTORY: fall, tailbone/lumbar pain. TECHNIQUE: Imaging Protocol: Axial computed tomography images with coronal and sagittal reformatted images were created and reviewed. COMPARISON: CR XR LUMBAR SPINE COMPLETE from 04/12/2020 FINDINGS: Bones: No fractures or dislocations are seen. The alignment of the spine is normal including the thoracolumbar junction. Soft tissues: The soft tissues of the visualized abdomen and chest are un remarkable. No large disk herniations are identified. IMPRESSION: No acute fracture or subluxation in the lumbosacral spine. Quality:SDOH Health Related Social Needs: No Data to Display PFSH All Active Problems (Updated 09/10/23 @ 17:33 by JOSE Weber) Sacral contusion (Acute) Shoulder arthritis (Acute) Cough (Acute) Medical History Chronic back pain Hidradenitis axillaris Obesity Seizures Surgical History Abdominal hysterectomy Appendectomy Bilateral salpingectomy with oophorectomy section Cholecystectomy Social History Smoking/Tobacco Use Status: Former Tobacco Use Smoking risk assessment performed?: Yes Alcohol Intake: never Drug use: Never Substance use type: does not use Housing: apartment Do you feel safe at home: Yes Do you feel safe in your relationship?: Yes
--- NOTE | 2023-09-10 17:01 | DI.RAD_ITS ---
Exam(s) XR SHOULDER LT COMPLETE 2+V EXAM: XR SHOULDER LT COMPLETE 2+V CLINICAL HISTORY: L shoulder pain. TECHNIQUE: 2D digital imaging was performed of the left shoulder. Five images were obtained. AP, G rashey, Y-view and axillary views were obtained. COMPARISON: CR XR PORTABLE CHEST AP from 02/20/2021 FINDINGS: BONES: No acute fracture is present. No bony destructive lesion is seen. Orthopedic anchors seen in t he humeral head. JOINTS: No dislocation present. There are degenerative changes seen at both the acromioclavicular and glenohumeral joints. SOFT TISSUE: Status post CABG. Sternal wires are in place. IMPRESSION: 1. Degenerative changes seen in the shoulder. 2. No acute fracture or dislocation. DATA REPOSITORY: RADIATION DOSE DELIVERED:
--- NOTE | 2023-09-10 17:01 | DI.CT_ITS ---
Exam(s) CT LUMBAR SPINE WO EXAM: CT LUMBAR SPINE WO CLINICAL HISTORY: fall, tailbone/lumbar pain. TECHNIQUE: Imaging Protocol: Axial computed tomography images with coronal and sagittal reformatted images were created and reviewed. COMPARISON: CR XR LUMBAR SPINE COMPLETE from 04/12/2020 FINDINGS: Bones: No fractures or dislocations are seen. The alignment of the spine is normal including the thor acolumbar junction. Soft tissues: The soft tissues of the visualized abdomen and chest are unremarkable. No large disk he rniations are identified. IMPRESSION: No acute fracture or subluxation in the lumbosacral spine. RADIATION DOSE DELIVERED: 983.93mGy.cm Total DLP 983.93mGy.cm Total DLP DATA REPOSITORY: All CT scans at this facility are submitted to the National Radiology Data Registry (NRDR) Dose Index Registry (DIR) with the [employer] ([employer]). RADIATION OPTIMIZATION: All CT scans at this facility use at least one of these dose optimization te chniques: automated exposure control; mA and/or kV adjustment per patient size (includes targeted exa ms where dose is matched to clinical indication); or iterative reconstruction.
== END 2023-09-10 17:48 | disposition home or self-care (01) ==
PROVIDERS: Emergency Provider Physician Assistant
DX: S30.0XXA Contusion of lower back and pelvis, initial encounter (principal); M25.512 Pain in left shoulder; M19.012 Primary osteoarthritis, left shoulder; W01.198A Fall on same level from slipping, tripping and stumbling with subsequent striking against other object, initial encounter
CPT/HCPCS: 99284; 72131; 73030; 99283

== ENCOUNTER 2023-09-13 12:15 | Emergency (ER) | payer MEDICAID, SELFPAY ==
[2023-09-13 12:16] VITALS: BP 150/91; PULSE 87; RESP 18; TEMP 36.4; O2SAT 99
--- NOTE | 2023-09-13 12:37 | W.ED.GENAD ---
Discharge Plan Disposition Patient Disposition: Home Condition: Stable Discharge Details Clinical Impression: Left shoulder pain Primary Care Provider: [facility] Provider: Joana Crook Home Meds and New Rx's Prescriptions: New hydrocodone-acetaminophen 5-325 mg tablet 1 tab PO Q8H PRN (Reason: pain) Qty: 7 0RF Rx Instructions: Please take 1 tablet by mouth 3 times a day as needed for moderate to severe pain. Please take with food no driving or operating heavy machinery. Continued isosorbide mononitrate 30 mg tablet extended release 24 hr 30 mg PO DAILY Patient Comments: take 1 tablet by mouth every morning clopidogrel 75 mg tablet 75 mg PO DAILY Patient Comments: take 1 tablet by mouth once daily nitroglycerin 0.4 mg Tablet, Sublingual 0.4 mg sublingual Q5 MIN PRN X3 PRN ezetimibe 10 mg tablet 10 mg PO HS Patient Comments: take 1 tablet by mouth nightly rosuvastatin 40 mg tablet 40 mg PO DAILY Patient Comments: take 1 tablet by mouth once daily aspirin 81 mg Capsule,Delayed Release(Dr/Ec) 81 mg PO DAILY metoprolol succinate [Toprol XL] 25 mg Tablet Extended Release 24 Hr 25 mg PO DAILY magnesium oxide 400 mg (241.3 mg magnesium) tablet 400 mg PO DAILY diclofenac sodium 1 % gel 2 g topical QID Qty: 100 0RF Rx Instructions: apply to single elbow, wrist or hand; for hand includes palm/fingers/back of hand No Action epinephrine [EpiPen 2-Seven] 0.3 MG/0.3 ML auto-injector 0.3 mg IM DIRECTED PRN melatonin 3 mg Tablet 9 mg PO HS acetaminophen [Tylenol Extra Strength] 500 mg Tablet 1,000 mg PO Q4-5H hydroxyzine HCl 25 mg tablet 50 mg PO HS Patient Comments: TAKE 1 TABLET BY MOUTH NIGHTLY NEEDED FOR ANXIETY AND SLEEP Entresto 24-26 mg Tablet 0.5 tab PO BID Discharge Instructions Instructions: Shoulder Pain ED, Opioids for Short-Term Treatment of Pain ED Additional Instructions: Alternate ice and heat keep your previously scheduled appointment with orthopedics. You were given a prescription for the continued pain. Please do not take this without food do not operate heavy machinery. Follow up with primary care provider in 3-5 days. Return to ED sooner if any worsening or concerns. Continue taking the Voltaren. You may also use lidocaine patches which you can get [id number]. Referrals: Dickson Ospina MD [ [facility] STAFF PHYSICIAN] - 2 weeks Discharge Data Discharge Date/Time-TO BE ENTERED AT DEPARTURE: 09/13/23 13:04 HPI General Mode of arrival: ambulatory. Date/Time Provider Initiated Documentation: 09/13/23 12:25. Limitations to Documentation: no limitations. Information obtained by: patient, RN notes reviewed and old records reviewed. HPI Narrative: 47-year-old female presents to the ER with chief complaint of left shoulder pain was seen here 3 days ago after an injury where a table fell onto her shoulder and she landed onto her bottom. She did have some imaging done which showed degenerative changes of her left shoulder. She denies any further recent injuries denies any chest pain shortness of breath or any other associated symptoms. She reports that she was given 4 tablets of hydrocodone to go which she used as prescribed and it did help her sleep. She does have a physical therapy referral she was also given lidocaine patch which seemed to help somewhat. She is allergic to tramadol. Past medical history includes seizures, chronic back pain, obesity, On exam no signs of injury distal CMS intact, no signs of dislocation. She does report some shooting sharp pains down into her fingers. She does have an orthopedic appointment on the . Related Data Home Medications Medication Instructions Recorded Confirmed epinephrine 0.3 mg/0.3 mL 0.3 mg IM DIRECTED PRN 04/16/16 09/13/23 injection, auto-injector (EpiPen 2-Seven) acetaminophen 500 mg tablet 1,000 mg PO Q4-5H 04/12/20 09/13/23 (Tylenol Extra Strength) aspirin 81 mg capsule,delayed 81 mg PO DAILY 04/12/20 09/13/23 release clopidogrel 75 mg tablet 75 mg PO DAILY 04/12/20 09/13/23 ezetimibe 10 mg tablet 10 mg PO HS 04/12/20 09/13/23 hydroxyzine HCl 25 mg tablet 50 mg PO HS 04/12/20 09/13/23 isosorbide mononitrate 30 mg 30 mg PO DAILY 04/12/20 09/13/23 tablet,extended release 24 hr melatonin 3 mg tablet 9 mg PO HS 04/12/20 09/13/23 metoprolol succinate 25 mg 25 mg PO DAILY 04/12/20 09/13/23 tablet,extended release 24 hr (Toprol XL) nitroglycerin 0.4 mg sublingual 0.4 mg sublingual Q5 MIN PRN X3 PRN 04/12/20 09/13/23 tablet rosuvastatin 40 mg tablet 40 mg PO DAILY 04/12/20 09/13/23 sacubitril 24 mg-valsartan 26 mg 0.5 tab PO BID 04/12/20 09/13/23 tablet (Entresto) magnesium oxide 400 mg (241.3 mg 400 mg PO DAILY 02/20/21 09/13/23 magnesium) tablet diclofenac sodium 1 % topical gel 2 g topical QID #100 grams 09/10/23 09/13/23 hydrocodone 5 mg-acetaminophen 325 1 tab PO Q8H PRN pain #7 tabs 09/13/23 mg tablet Previous Rx's Medication Instructions Recorded diclofenac sodium 1 % topical gel 2 g topical QID #100 grams 09/10/23 hydrocodone 5 mg-acetaminophen 325 1 tab PO Q8H PRN pain #7 tabs 09/13/23 mg tablet Allergies Allergy/AdvReac Type Severity Reaction Status Date / Time bee pollen Allergy Severe Anaphylaxsi Unverified 09/13/23 12:21 s mushroom Allergy Severe Anaphylaxsi Unverified 09/13/23 12:21 s Penicillins Allergy Severe Anaphylaxsi Unverified 09/13/23 12:21 s doxycycline Allergy Intermediate Hives Unverified 02/20/21 13:36 sumatriptan [From Imitrex] Allergy Intermediate Skin Rash Unverified 09/13/23 12:21 sumatriptan succinate Allergy Intermediate Skin Rash Unverified 09/13/23 12:21 [From Imitrex] tramadol Allergy Intermediate Hives Unverified 09/13/23 12:21 erythromycin base Allergy Mild Hives Unverified 09/13/23 12:21 [Erythromycin Base] General Stated Complaint: Orthopedic JACIEL: 4 Review of Systems All systems reviewed & are unremarkable except as noted in HPI and below Musculoskeletal Musculoskeletal: Reports as per HPI, Reports arthralgias and Reports limited range of motion Exam Narrative Exam Narrative: Constitutional: Alert and oriented x3. Appears stated age. Normal body habitus. Head: Normocephalic, no trauma. Eyes: . Eyelids symmetrical without lesions, discharge, or swelling. Chest: RRR, Normal S1, S2, distal pulses intact. Resp: Lungs clear to auscultation bilaterally, no wheezes, rales, or rhonchi. Musculoskeletal: Normal gait, Moves 3 extremities without difficulty. Does have some tenderness with abduction of her left arm, no obvious deformity swelling erythema distal CMS intact, she does have some pinpoint tenderness over the anterior AC joint, and posterior shoulder. Skin: No suspicious rashes or lesions. Capillary refill less than 2 sec. Neurologic: Cranial nerves II-XII intact. Alert and oriented x 3. Motor: No deficits noted. Sensory: Intact bilaterally all 4 extremities. Hematologic/Lymphatic: No ecchymosis, no lymphadenopathy. Course Vital Signs Vital signs: Vital Signs Temperature 36.4 C L 09/13/23 12:16 Pulse 87 09/13/23 12:16 Respiratory Rate 18 09/13/23 12:16 Blood Pressure 150/91 H 09/13/23 12:16 Pulse Oximetry 99 09/13/23 12:16 Temperature 36.4 C L 09/13/23 12:16 Pulse 87 09/13/23 12:16 Respiratory Rate 18 09/13/23 12:16 Respiratory Effort Normal 09/13/23 12:20 Blood Pressure 150/91 H 09/13/23 12:16 Blood Pressure Position Sitting 09/13/23 12:16 Pulse Oximetry 99 09/13/23 12:16 Oxygen Delivery Method Room Air 09/13/23 12:16 Oxygen Flow Rate 0 09/13/23 12:16 Medical Decision Making 47-year-old female presents to the ER with chief complaint of left shoulder pain was seen here 3 days ago after an injury where a table fell onto her shoulder and she landed onto her bottom. She did have some imaging done which showed degenerative changes of her left shoulder. She denies any further recent injuries denies any chest pain shortness of breath or any other associated symptoms. She reports that she was given 4 tablets of hydrocodone to go which she used as prescribed and it did help her sleep. She does have a physical therapy referral she was also given lidocaine patch which seemed to help somewhat. She is allergic to tramadol. Past medical history includes seizures, chronic back pain, obesity, On exam no signs of injury distal CMS intact, no signs of dislocation. She does report some shooting sharp pains down into her fingers. She does have an orthopedic appointment on the . Imaging deferred at this point due to no additional injury. Patient given prescription and instructed to follow-up with orthopedics. She remained hemodynamically stable throughout the remainder of her stay. This text was generated using [employer] system, please disregard any oddities of phrase or misspellings. Medical Records Medical records reviewed: Yes I reviewed the patient's medical records. Quality:SDOH Health Related Social Needs: No Data to Display PFSH All Active Problems (Updated 09/13/23 @ 12:53 by Joana Crook NP) Left shoulder pain (Acute) Sacral contusion (Acute) Shoulder arthritis (Acute) Cough (Acute) Medical History Obesity Chronic back pain Seizures Hidradenitis axillaris Surgical History section Abdominal hysterectomy Cholecystectomy Bilateral salpingectomy with oophorectomy Appendectomy Social History Smoking/Tobacco Use Status: Former Tobacco Use Smoking risk assessment performed?: Yes Alcohol Intake: never Drug use: Never Substance use type: does not use Housing: apartment Do you feel safe at home: Yes Do you feel safe in your relationship?: Yes
== END 2023-09-13 13:04 | disposition home or self-care (01) ==
PROVIDERS: Emergency Provider Registered Nurse Emergency
DX: M25.512 Pain in left shoulder (principal)
CPT/HCPCS: 99283

== ENCOUNTER 2023-10-04 12:52 | Emergency (ER) | payer MEDICAID, SELFPAY ==
[2023-10-04 12:54] VITALS: BP 167/98; PULSE 96; RESP 17; TEMP 36.6; O2SAT 99
--- NOTE | 2023-10-04 14:05 | ED.GENADUL_ITS ---
Discharge Plan Discharge Details Chief Complaint: Orthopedic Primary Care Provider: [facility] Provider: Larry Russell Home Meds and New Rx's Prescriptions: No Action hydrocodone-acetaminophen 5-325 mg tablet 1 tab PO Q8H PRN (Reason: pain) Qty: 7 0RF Rx Instructions: Please take 1 tablet by mouth 3 times a day as needed for moderate to severe pain. Please take with food no driving or operating heavy machinery. epinephrine [EpiPen 2-Seven] 0.3 MG/0.3 ML auto-injector 0.3 mg IM DIRECTED PRN isosorbide mononitrate 30 mg tablet extended release 24 hr 30 mg PO DAILY Patient Comments: take 1 tablet by mouth every morning melatonin 3 mg Tablet 9 mg PO HS clopidogrel 75 mg tablet 75 mg PO DAILY Patient Comments: take 1 tablet by mouth once daily acetaminophen [Tylenol Extra Strength] 500 mg Tablet 1,000 mg PO Q4-5H nitroglycerin 0.4 mg Tablet, Sublingual 0.4 mg sublingual Q5 MIN PRN X3 PRN hydroxyzine HCl 25 mg tablet 50 mg PO HS Patient Comments: TAKE 1 TABLET BY MOUTH NIGHTLY NEEDED FOR ANXIETY AND SLEEP ezetimibe 10 mg tablet 10 mg PO HS Patient Comments: take 1 tablet by mouth nightly rosuvastatin 40 mg tablet 40 mg PO DAILY Patient Comments: take 1 tablet by mouth once daily Entresto 24-26 mg Tablet 0.5 tab PO BID aspirin 81 mg Capsule,Delayed Release(Dr/Ec) 81 mg PO DAILY metoprolol succinate [Toprol XL] 25 mg Tablet Extended Release 24 Hr 25 mg PO DAILY magnesium oxide 400 mg (241.3 mg magnesium) tablet 400 mg PO DAILY diclofenac sodium 1 % gel 2 g topical QID Qty: 100 0RF Rx Instructions: apply to single elbow, wrist or hand; for hand includes palm/fingers/back of hand HPI General Date/Time Provider Initiated Documentation: 10/04/23 13:52 . HPI Narrative: MDM Chronic conditions affecting the care of the patient: [] History obtained from an outside historian: [] External record review: [] [Diagnostic interpretations performed by me: Per my independent interpretation chest x-ray shows: Per my independent interpretation EKG shows: ]Medications: [] Social determinants of health affecting disposition: [] Management discussed with: [] Treatment/interventions considered: [] Response to therapies provided: [] HPI [ ] Exam General: Well-appearing in no acute distress speaking in complete sentences. Head: Normocephalic, atraumatic. Eye:[Pupils equal, round reactive to light.] Extraocular eye movements intact. No conjunctival injection. No scleral icterus. Ear, nose, mouth, throat: Grossly normal inspection. Normal voice, handling secretions normally. Neck: Trachea midline. Cardiovascular: Well-perfused distal extremities. Respiratory: Nonlabored respiration. Gastrointestinal: Nondistended abdomen. Musculoskeletal: No edema. Moving all 4 extremities spontaneously. Skin: Normal for age and race, grossly normal temperature and turgor. No acute rash. Neurologic: Alert and appropriate, no apparent acute deficits. Psychiatric: Mood and manner are appropriate. Grooming and personal hygiene are appropriate. Related Data Home Medications ?Medication ?Instructions ?Recorded ?Confirmed epinephrine 0.3 mg/0.3 mL 0.3 mg IM DIRECTED PRN 04/16/16 10/04/23 injection, auto-injector (EpiPen 2-Seven) acetaminophen 500 mg tablet 1,000 mg PO Q4-5H 04/12/20 10/04/23 (Tylenol Extra Strength) aspirin 81 mg capsule,delayed 81 mg PO DAILY 04/12/20 10/04/23 release clopidogrel 75 mg tablet 75 mg PO DAILY 04/12/20 10/04/23 ezetimibe 10 mg tablet 10 mg PO HS 04/12/20 10/04/23 hydroxyzine HCl 25 mg tablet 50 mg PO HS 04/12/20 10/04/23 isosorbide mononitrate 30 mg 30 mg PO DAILY 04/12/20 10/04/23 tablet,extended release 24 hr melatonin 3 mg tablet 9 mg PO HS 04/12/20 10/04/23 metoprolol succinate 25 mg 25 mg PO DAILY 04/12/20 10/04/23 tablet,extended release 24 hr (Toprol XL) nitroglycerin 0.4 mg sublingual 0.4 mg sublingual Q5 MIN PRN X3 PRN 04/12/20 10/04/23 tablet rosuvastatin 40 mg tablet 40 mg PO DAILY 04/12/20 10/04/23 sacubitril 24 mg-valsartan 26 mg 0.5 tab PO BID 04/12/20 10/04/23 tablet (Entresto) magnesium oxide 400 mg (241.3 mg 400 mg PO DAILY 12/13/21 07/26/24 magnesium) tablet diclofenac sodium 1 % topical gel 2 g topical QID #100 grams 09/10/23 10/04/23 hydrocodone 5 mg-acetaminophen 325 1 tab PO Q8H PRN pain #7 tabs 09/13/23 10/04/23 mg tablet Previous Rx's ?Medication ?Instructions ?Recorded diclofenac sodium 1 % topical gel 2 g topical QID #100 grams 09/10/23 hydrocodone 5 mg-acetaminophen 325 1 tab PO Q8H PRN pain #7 tabs 09/13/23 mg tablet Allergies Allergy/AdvReac Type Severity Reaction Status Date / Time bee pollen Allergy Severe Anaphylaxsi Unverified 10/04/23 12:58 s mushroom Allergy Severe Anaphylaxsi Unverified 10/04/23 12:58 s Penicillins Allergy Severe Anaphylaxsi Unverified 10/04/23 12:58 s doxycycline Allergy Intermediate Hives Unverified 10/04/23 12:58 sumatriptan (From Imitrex) Allergy Intermediate Skin Rash Unverified 10/04/23 12:58 sumatriptan succinate (From Allergy Intermediate Skin Rash Unverified 10/04/23 12:58 Imitrex) tramadol Allergy Intermediate Hives Unverified 10/04/23 12:58 erythromycin base Allergy Mild Hives Unverified 10/04/23 12:58 (Erythromycin Base) General Stated Complaint: Orthopedic JACIEL: 4 Course Vital Signs Vital signs: Vital Signs Temperature 36.6 C 10/04/23 12:54 Pulse 96 H 10/04/23 12:54 Respiratory Rate 17 10/04/23 12:54 Blood Pressure 167/98 H 10/04/23 12:54 Pulse Oximetry 99 10/04/23 12:54 Temperature 36.6 C 10/04/23 12:54 Temperature Source Temporal Artery Scan 10/04/23 12:54 Pulse 96 H 10/04/23 12:54 Respiratory Rate 17 10/04/23 12:54 Blood Pressure 167/98 H 10/04/23 12:54 Blood Pressure Position Sitting 10/04/23 12:54 Pulse Oximetry 99 10/04/23 12:54 Oxygen Delivery Method Room Air 10/04/23 12:54 Oxygen Flow Rate 0 10/04/23 12:54 Pain Level 7 10/04/23 12:54 Medical Decision Making Quality:SDOH Health Related Social Needs: No Data to Display PFSH All Active Problems (Updated 09/13/23 @ 12:53 by Joana Crook NP) Left shoulder pain (Acute) Sacral contusion (Acute) Shoulder arthritis (Acute) Cough (Acute) Medical History Obesity Chronic back pain Seizures Hidradenitis axillaris Surgical History section Abdominal hysterectomy Cholecystectomy Bilateral salpingectomy with oophorectomy Appendectomy Social History Smoking/Tobacco Use Status: Former Tobacco Use Smoking risk assessment performed?: Yes Alcohol Intake: never Drug use: Never Substance use type: does not use Housing: apartment Do you feel safe at home: Yes Do you feel safe in your relationship?: Yes
--- NOTE | 2023-10-04 14:08 | W.ED.FU ---
Follow Up Plan: I had initially signed up to evaluate this patient. She left prior to being seen from the waiting room.
== END 2023-10-04 14:07 ==
PROVIDERS: Emergency Provider Emergency Medicine
DX: Z53.21 Procedure and treatment not carried out due to patient leaving prior to being seen by health care provider (principal)

== ENCOUNTER 2023-10-05 13:23 | Emergency (ER) | payer MEDICAID, SELFPAY ==
[2023-10-05 13:29] VITALS: BP 164/111; PULSE 93; RESP 16; TEMP 37; O2SAT 100
--- NOTE | 2023-10-05 14:28 | W.ED.GENAD ---
Discharge Plan Disposition Patient Disposition: Home Discharge Details Clinical Impression: Shoulder arthritis, Left shoulder pain Primary Care Provider: Jenn,Local ED Provider: Nirmal Benítez Home Meds and New Rx's Prescriptions: No Action hydrocodone-acetaminophen 5-325 mg tablet 1 tab PO Q8H PRN (Reason: pain) Qty: 7 0RF Rx Instructions: Please take 1 tablet by mouth 3 times a day as needed for moderate to severe pain. Please take with food no driving or operating heavy machinery. epinephrine [EpiPen 2-Seven] 0.3 MG/0.3 ML auto-injector 0.3 mg IM DIRECTED PRN isosorbide mononitrate 30 mg tablet extended release 24 hr 30 mg PO DAILY Patient Comments: take 1 tablet by mouth every morning melatonin 3 mg Tablet 9 mg PO HS clopidogrel 75 mg tablet 75 mg PO DAILY Patient Comments: take 1 tablet by mouth once daily acetaminophen [Tylenol Extra Strength] 500 mg Tablet 1,000 mg PO Q4-5H nitroglycerin 0.4 mg Tablet, Sublingual 0.4 mg sublingual Q5 MIN PRN X3 PRN hydroxyzine HCl 25 mg tablet 50 mg PO HS Patient Comments: TAKE 1 TABLET BY MOUTH NIGHTLY NEEDED FOR ANXIETY AND SLEEP ezetimibe 10 mg tablet 10 mg PO HS Patient Comments: take 1 tablet by mouth nightly rosuvastatin 40 mg tablet 40 mg PO DAILY Patient Comments: take 1 tablet by mouth once daily Entresto 24-26 mg Tablet 0.5 tab PO BID aspirin 81 mg Capsule,Delayed Release(Dr/Ec) 81 mg PO DAILY metoprolol succinate [Toprol XL] 25 mg Tablet Extended Release 24 Hr 25 mg PO DAILY magnesium oxide 400 mg (241.3 mg magnesium) tablet 400 mg PO DAILY diclofenac sodium 1 % gel 2 g topical QID Qty: 100 0RF Rx Instructions: apply to single elbow, wrist or hand; for hand includes palm/fingers/back of hand Discharge Instructions Instructions: Managing acute pain at home, Shoulder Pain ED, Opioids for Short-Term Treatment of Pain ED Additional Instructions: At this time I feel that you have an acute flareup of your chronic shoulder condition. I do not feel that radiological imaging would be beneficial at this time and it is very important that you follow-up with orthopedic for establishment of long-term care plan As discussed please keep your appointment this next week to see orthopedics pediatric physician Please use the provided narcotics appropriately and safely. Please do not operate any heavy machinery, drive a vehicle, or perform any other potentially dangerous actions as narcotics can cause altered mental status. You should continue to use the Voltaren gel and acetaminophen for the majority of your pain and use narcotics only for severe pain or discomfort. Referrals: [facility] [Provider Group] (Keep your appointment as scheduled) Discharge Data Discharge Date/Time-TO BE ENTERED AT DEPARTURE: 10/05/23 14:44 HPI General Mode of arrival: ambulatory. Date/Time Provider Initiated Documentation: 10/05/23 13:24. Limitations to Documentation: no limitations. Information obtained by: patient and RN notes reviewed. History of Present Illness 47 year old F presents to the emergency department with the chief complaint of Left shoulder pain, described as moderate, severe and similar to prior episodes, Quality is described as sharp, and is localized to the left and upper extremity. Patient reports no radiation. Patient started experiencing this day(s) (3) and it has been constant. Immobilization improves symptom(s), Movement worsens symptoms . Patient notes no other symptoms.. Patient did receive the following treatments prior to arrival, cold therapy and other (Acetaminophen) Related Data Home Medications ?Medication ?Instructions ?Recorded ?Confirmed epinephrine 0.3 mg/0.3 mL 0.3 mg IM DIRECTED PRN 04/16/16 10/04/23 injection, auto-injector (EpiPen 2-Seven) acetaminophen 500 mg tablet 1,000 mg PO Q4-5H 04/12/20 10/04/23 (Tylenol Extra Strength) aspirin 81 mg capsule,delayed 81 mg PO DAILY 04/12/20 10/04/23 release clopidogrel 75 mg tablet 75 mg PO DAILY 04/12/20 10/04/23 ezetimibe 10 mg tablet 10 mg PO HS 04/12/20 10/04/23 hydroxyzine HCl 25 mg tablet 50 mg PO HS 04/12/20 10/04/23 isosorbide mononitrate 30 mg 30 mg PO DAILY 04/12/20 10/04/23 tablet,extended release 24 hr melatonin 3 mg tablet 9 mg PO HS 04/12/20 10/04/23 metoprolol succinate 25 mg 25 mg PO DAILY 04/12/20 10/04/23 tablet,extended release 24 hr (Toprol XL) nitroglycerin 0.4 mg sublingual 0.4 mg sublingual Q5 MIN PRN X3 PRN 04/12/20 10/04/23 tablet rosuvastatin 40 mg tablet 40 mg PO DAILY 04/12/20 10/04/23 sacubitril 24 mg-valsartan 26 mg 0.5 tab PO BID 04/12/20 10/04/23 tablet (Entresto) magnesium oxide 400 mg (241.3 mg 400 mg PO DAILY 02/20/21 10/04/23 magnesium) tablet diclofenac sodium 1 % topical gel 2 g topical QID #100 grams 09/10/23 10/04/23 hydrocodone 5 mg-acetaminophen 325 1 tab PO Q8H PRN pain #7 tabs 09/13/23 10/04/23 mg tablet Previous Rx's ?Medication ?Instructions ?Recorded diclofenac sodium 1 % topical gel 2 g topical QID #100 grams 09/10/23 hydrocodone 5 mg-acetaminophen 325 1 tab PO Q8H PRN pain #7 tabs 09/13/23 mg tablet Allergies Allergy/AdvReac Type Severity Reaction Status Date / Time bee pollen Allergy Severe Anaphylaxsi Unverified 10/04/23 12:58 s mushroom Allergy Severe Anaphylaxsi Unverified 10/04/23 12:58 s Penicillins Allergy Severe Anaphylaxsi Unverified 10/04/23 12:58 s doxycycline Allergy Intermediate Hives Unverified 10/04/23 12:58 sumatriptan (From Imitrex) Allergy Intermediate Skin Rash Unverified 10/04/23 12:58 sumatriptan succinate (From Allergy Intermediate Skin Rash Unverified 10/04/23 12:58 Imitrex) tramadol Allergy Intermediate Hives Unverified 10/04/23 12:58 erythromycin base Allergy Mild Hives Unverified 10/04/23 12:58 (Erythromycin Base) General Stated Complaint: Orthopedic JACIEL: 3 Review of Systems Constitutional Constitutional: Denies fever(s) ENT Ears, Nose, Mouth, and Throat: Denies neck pain Cardiovascular Cardiovascular: Denies chest pain and Denies dyspnea Respiratory Respiratory: Denies dyspnea Musculoskeletal Musculoskeletal: Reports as per HPI, Denies joint swelling, Reports limited range of motion, Denies neck pain and Denies numbness Neurologic Neurologic: Denies numbness Exam Const General: cooperative, no acute distress and not ill appearing Orientation: alert, awake and oriented x3 HENMT Mouth: moist mucous membranes Resp Effort & Inspection: normal respiratory effort, able to speak in complete sentences and no respiratory distress Auscultation: clear to auscultation bilaterally Cardio Rate: regular rate Rhythm: regular rhythm Heart Sounds: S1 normal and S2 normal Pulses: normal peripheral pulses Skin General skin exam: no rashes or lesions noted Neuro General: patient alert, patient awake, patient oriented x3, moves all extremities and no focal motor deficits Sensory Exam: no sensory deficits noted Extrem General: normal exam except as noted Right upper extremity: shoulder/upper arm Details: abnormal to inspection Details: other (Scarring present), tenderness Location: of the proximal humerus (Anterior aspect), axillary nerve sensory function normal and abnormal ROM (Significant pain and discomfort with any rotation or flexion); no swelling, no abrasions, no lacerations, no ecchymosis, no deformity and no unusual warmth Course Vital Signs Vital signs: Vital Signs Temperature 37.0 C 10/05/23 13:29 Pulse 93 H 10/05/23 13:29 Respiratory Rate 16 10/05/23 13:29 Blood Pressure 164/111 H 10/05/23 13:29 Pulse Oximetry 100 10/05/23 13:29 Temperature 37.0 C 10/05/23 13:29 Pulse 93 H 10/05/23 13:29 Respiratory Rate 16 10/05/23 13:29 Blood Pressure 164/111 H 10/05/23 13:29 Pulse Oximetry 100 10/05/23 13:29 Oxygen Delivery Method Room Air 10/05/23 13:29 Oxygen Flow Rate 0 10/05/23 13:29 Pain Level 10 10/05/23 13:29 Medical Decision Making Patient presenting to the emergency department for chief complaint of left shoulder injury. Patient states that she has chronic left rotator cuff pain and injury with her being informed in the past that she would need a total shoulder replacement. Patient was seen 2 times in the emergency department earlier in the month due to pain and discomfort and did receive some narcotics due to being on Plavix and pain not controlled with acetaminophen and ice. She states that a couple days ago she was changing a tire and the bar she was using to change a tire struck her in her left shoulder reaggravating the symptoms. She does report that this week she has an upcoming appointment with orthopedist for further discussion of long-term care for her pain but due to an acute exacerbation is presenting to the ED. Patient denies any other injury or trauma new or different symptoms beyond past pain pattern. Physical exam shows significant anterior tenderness to the left shoulder, pain with any sort of rotation or flexion of the shoulder otherwise noncontributory exam. Had a thorough discussion with patient in regards to 2 other visits to the emergency department and receive narcotics at that time. I will admit that it does not seem like patient has abused them and has taken only as prescribed. Did inform patient for chronic pain that establishing a better plan with orthopedics or primary care is needed but at this time I would give her limited supply of to go narcotics to help with the acute issue but that in the future we would not continue to do this given multiple visits for the similar or same complaint. Patient was agreeable to this plan and showed no other concerning features. Given that this is acute on chronic pain I do not feel that radiological imaging is needed and that beyond limited narcotics conservative management is okay. After discussion of diagnosis and plan of care patient has no further needs, questions, or concerns and states clear understanding to return to the emergency department for any worsening symptoms. This documentation was generated using [employer] dictation system, please disregard any oddities of phrase or misspellings. Quality:SDOH Health Related Social Needs: No Data to Display PFSH All Active Problems Left shoulder pain (Acute) Sacral contusion (Acute) Shoulder arthritis (Acute) Cough (Acute) Medical History Obesity Chronic back pain Seizures Hidradenitis axillaris Surgical History section Abdominal hysterectomy Cholecystectomy Bilateral salpingectomy with oophorectomy Appendectomy Social History Smoking/Tobacco Use Status: Former Tobacco Use Smoking risk assessment performed?: Yes Alcohol Intake: never Drug use: Never Substance use type: does not use Housing: apartment Do you feel safe at home: Yes Do you feel safe in your relationship?: Yes
[2023-10-05 14:35] VITALS: BP 135/98; PULSE 58; O2SAT 100
== END 2023-10-05 14:44 | disposition home or self-care (01) ==
PROVIDERS: Emergency Provider Nurse Practitioner Family
DX: M19.012 Primary osteoarthritis, left shoulder (principal); M25.512 Pain in left shoulder; Z79.01 Long term (current) use of anticoagulants; Z79.82 Long term (current) use of aspirin; Z87.891 Personal history of nicotine dependence
CPT/HCPCS: 99283

== ENCOUNTER 2023-11-08 11:58 | Emergency (ER) | payer MEDICAID, SELFPAY ==
[2023-11-08 11:59] VITALS: BP 129/93; PULSE 98; RESP 18; TEMP 36.4; O2SAT 98
--- NOTE | 2023-11-08 12:18 | ED.GENADUL_ITS ---
Discharge Plan Disposition Patient Disposition: Home Condition: Stable Discharge Details Clinical Impression: Right flank pain, UTI (urinary tract infection) [facility] Riggs Home Meds and New Rx's Prescriptions: New ciprofloxacin HCl 500 mg tablet 500 mg PO BID Qty: 14 0RF fluconazole 150 mg tablet 150 mg PO DAILY Qty: 2 0RF Rx Instructions: take 1 tablet on day 1 and if still symptomatic in 3 days take another 1 tablet Continued epinephrine [EpiPen 2-Seven] 0.3 MG/0.3 ML auto-injector 0.3 mg IM DIRECTED PRN isosorbide mononitrate 30 mg tablet extended release 24 hr 30 mg PO DAILY Patient Comments: take 1 tablet by mouth every morning melatonin 3 mg Tablet 9 mg PO HS clopidogrel 75 mg tablet 75 mg PO DAILY Patient Comments: take 1 tablet by mouth once daily acetaminophen [Tylenol Extra Strength] 500 mg Tablet 1,000 mg PO Q4-5H nitroglycerin 0.4 mg Tablet, Sublingual 0.4 mg sublingual Q5 MIN PRN X3 PRN hydroxyzine HCl 25 mg tablet 50 mg PO HS Patient Comments: TAKE 1 TABLET BY MOUTH NIGHTLY NEEDED FOR ANXIETY AND SLEEP ezetimibe 10 mg tablet 10 mg PO HS Patient Comments: take 1 tablet by mouth nightly Entresto 24-26 mg Tablet 0.5 tab PO BID aspirin 81 mg Capsule,Delayed Release(Dr/Ec) 81 mg PO DAILY metoprolol succinate [Toprol XL] 25 mg Tablet Extended Release 24 Hr 25 mg PO DAILY Discharge Instructions Additional Instructions: You are being treated for urinary tract infection Follow-up with your primary care provider this week or express care if you are not feeling better If you feel more ill or any symptoms such as high fevers or persistent vomiting return to the emergency department for reevaluation HPI General Mode of arrival: ambulatory . Date/Time Provider Initiated Documentation: 11/08/23 12:01 . Limitations to Documentation: no limitations . Information obtained by: patient . History of Present Illness 47 year old F presents to the emergency department with the chief complaint of right flank pain, described as moderate, Patient started experiencing this day(s) (2) and it has been constant. No relieving factors improve symptom(s), No exacerbating factors reported . Patient notes denies chest pain, diaphoresis, fever/chills and shortness of breath. Related Data Home Medications ?Medication ?Instructions ?Recorded ?Confirmed epinephrine 0.3 mg/0.3 mL 0.3 mg IM DIRECTED PRN 04/16/16 11/08/23 injection, auto-injector (EpiPen 2-Seven) acetaminophen 500 mg tablet 1,000 mg PO Q4-5H 04/12/20 11/08/23 (Tylenol Extra Strength) aspirin 81 mg capsule,delayed 81 mg PO DAILY 04/12/20 11/08/23 release clopidogrel 75 mg tablet 75 mg PO DAILY 04/12/20 11/08/23 ezetimibe 10 mg tablet 10 mg PO HS 04/12/20 11/08/23 hydroxyzine HCl 25 mg tablet 50 mg PO HS 04/12/20 11/08/23 isosorbide mononitrate 30 mg 30 mg PO DAILY 04/12/20 11/08/23 tablet,extended release 24 hr melatonin 3 mg tablet 9 mg PO HS 04/12/20 11/08/23 metoprolol succinate 25 mg 25 mg PO DAILY 04/12/20 11/08/23 tablet,extended release 24 hr (Toprol XL) nitroglycerin 0.4 mg sublingual 0.4 mg sublingual Q5 MIN PRN X3 PRN 04/12/20 11/08/23 tablet sacubitril 24 mg-valsartan 26 mg 0.5 tab PO BID 04/12/20 11/08/23 tablet (Entresto) ciprofloxacin HCl 500 mg tablet 500 mg PO BID #14 tabs 11/08/23 fluconazole 150 mg tablet 150 mg PO DAILY #2 tabs 11/08/23 Previous Rx's ?Medication ?Instructions ?Recorded ciprofloxacin HCl 500 mg tablet 500 mg PO BID #14 tabs 11/08/23 fluconazole 150 mg tablet 150 mg PO DAILY #2 tabs 11/08/23 Allergies Allergy/AdvReac Type Severity Reaction Status Date / Time bee pollen Allergy Severe Anaphylaxsi Unverified 10/04/23 12:58 s mushroom Allergy Severe Anaphylaxsi Unverified 10/04/23 12:58 s Penicillins Allergy Severe Anaphylaxsi Unverified 10/04/23 12:58 s doxycycline Allergy Intermediate Hives Unverified 10/04/23 12:58 sumatriptan (From Imitrex) Allergy Intermediate Skin Rash Unverified 10/04/23 12:58 sumatriptan succinate (From Allergy Intermediate Skin Rash Unverified 10/04/23 12:58 Imitrex) tramadol Allergy Intermediate Hives Unverified 10/04/23 12:58 erythromycin base Allergy Mild Hives Unverified 10/04/23 12:58 (Erythromycin Base) General Stated Complaint: FlankPain JACIEL: 3 Review of Systems All systems reviewed & are unremarkable except as noted in HPI and below Constitutional Constitutional: Denies chills, Denies fever(s) and Denies weakness Cardiovascular Cardiovascular: Denies chest pain and Denies dyspnea Respiratory Respiratory: Denies cough and Denies dyspnea Gastrointestinal Gastrointestinal: Denies abdominal pain, Denies nausea and Denies vomiting Musculoskeletal Musculoskeletal: Reports back pain and Denies joint swelling Neurologic Neurologic: Denies weakness Exam Const General: no acute distress Orientation: alert HENMT Head: normal to inspection Ears: external ears normal General nose exam: external nose normal Mouth: moist mucous membranes Eyes General: appearance normal, both eyes and all related structures Neck Neck: normal visual inspection Resp Effort & Inspection: normal respiratory effort and able to speak in complete sentences Cardio Rate: regular rate GI Palpation: soft and nontender Back/Spine/Pelvis Back: No erythema and No warmth Skin General skin exam: no rashes or lesions noted Neuro General: patient alert and patient oriented x3 Extrem General: normal to inspection Psych Mental Status: mental status grossly normal Course Vital Signs Vital signs: Vital Signs Temperature 36.4 C L 11/08/23 11:59 Pulse 98 H 11/08/23 11:59 Respiratory Rate 18 11/08/23 11:59 Blood Pressure 129/93 H 11/08/23 11:59 Pulse Oximetry 98 11/08/23 11:59 Temperature 36.4 C L 11/08/23 11:59 Temperature Source Temporal Artery Scan 11/08/23 11:59 Pulse 98 H 11/08/23 11:59 Respiratory Rate 18 11/08/23 11:59 Blood Pressure 129/93 H 11/08/23 11:59 Blood Pressure Position Sitting 11/08/23 11:59 Pulse Oximetry 98 11/08/23 11:59 Oxygen Delivery Method Room Air 11/08/23 11:59 Oxygen Flow Rate 0 11/08/23 11:59 Pain Level 8 11/08/23 11:59 Medical Decision Making 47-year-old female with a history of coronary artery disease status post bypass surgery, who comes in with complaints of vaginal yeast infection for a week and then right flank pain for 2 days. She has used Monistat which helped initially but now is returned. Denies any fevers, chills, vomiting. Yesterday her abdomen hurt but has no pain today. She is alert oriented x 4 on arrival speaking clearly. Abdomen is soft and nontender. She localizes her back pain to the right lower back, no CVA tenderness, warmth or erythema, no saddle anesthesia intact distal sensation and pulses. Patient declined vaginal exam. Given the right lower back pain will obtain CBC, CMP, lipase and a CT renal colic to evaluate for kidney stone as well as a UA to evaluate for possible UTI. Labs show elevated lipase, clinical picture does not entirely consistent with pancreatitis as no abdominal pain. Her UA does show evidence of infection and on the CT is some mild nonspecific perinephric stranding which could be from pyelonephritis. Patient is hemodynamically stable and appears well. Will initi ate ciprofloxacin and she is stable for discharge, she was advised to follow-up with her PCP and return precautions given. Differential Diagnosis Differential Diagnosis: Kidney stone, pyelonephritis Medical Records Medical records reviewed: Yes I reviewed the patient's medical records. Lab Data Lab results reviewed: Yes I reviewed the patient's lab results. Quality:SDOH Health Related Social Needs: No Data to Display PFSH All Active Problems (Updated 11/08/23 @ 13:32 by Johny Riggs MD) UTI (urinary tract infection) (Acute) Right flank pain (Acute) No-show for appointment (Acute) Cough (Acute) Medical History Obesity Chronic back pain Seizures Hidradenitis axillaris Surgical History section Abdominal hysterectomy Cholecystectomy Bilateral salpingectomy with oophorectomy Appendectomy Social History Smoking/Tobacco Use Status: Former Tobacco Use Smoking risk assessment performed?: Yes Alcohol Intake: never Drug use: Never Substance use type: does not use Housing: apartment Do you feel safe at home: Yes Do you feel safe in your relationship?: Yes
[2023-11-08 12:29] LABS: Bilirubin Negative (Negative); Blood Negative (Negative); Clarity Sl Cloudy (Clear); Glucose >=1000 mg/dL (Negative); Ketones Negative (Negative); Leukocyte Esterase Negative (Negative); Nitrite Negative (Negative); Specific Gravity 1.015 (1.005-1.025); Urobilinogen 0.2 mg/dL (Up to 0.2); pH 5.5 (5-8)
[2023-11-08 12:34] VITALS: BP 129/93; PULSE 98; RESP 18; TEMP 36.4; O2SAT 98
[2023-11-08 12:42] LABS: Abs Immature Grans 0.03 10^3/uL (0.0-0.06); Absolute Basophil Count 0.09 10^3/uL (0.0-0.2); Absolute Eosinophil Count 0.12 10^3/uL (0.0-0.7); Absolute Lymphocyte Count 3.87 10^3/uL (1.2-3.4); Absolute Monocyte Count 0.43 10^3/uL (0.1-0.8); Absolute Neutrophil Count 5.16 10^3/uL (1.2-6.7); Basophils % 0.9 %; Eosinophils % 1.2 %; HCT 46.1 % (36.0-46.0); HGB 16.6 g/dL (11.2-15.7); Immature Grans % 0.3 %; Lymphocytes % 39.9 %; MCH 31.7 pg (27.0-33.0); MCV 88 fL (80-95); Monocytes % 4.4 %; Neutrophils % 53.3 %; Platelet Count 329 10^3/uL (130-400); RBC 5.23 10^6/uL (3.93-5.22); RDW-SD 39.1 fL
[2023-11-08] MEDS: Normal Saline 1,000 ML 1000 ML IV (12:43)
[2023-11-08] MEDS: ACETAMINOPHEN 1,000 MG/100 ML BTL 400 MG IVPB (12:43)
[2023-11-08 12:50] LABS: Bacteria Moderate HPF (Negative); C & S Indicated? No/Sq. Contamination; Casts Negative LPF (Negative); Crystals Negative HPF (Negative); Epithelial Cells Many HPF (Negative); Mucus Negative (Negative); Other Cells Negative (Negative); RBC 0-2 HPF (0-2)
--- NOTE | 2023-11-08 12:51 | DI.CT_ITS ---
Exam(s) CT RENAL COLIC WO EXAM: CT RENAL COLIC WO CLINICAL HISTORY: right flank pain. TECHNIQUE: Imaging Protocol: Axial computed tomography images with coronal and sagittal reformatted images were created and reviewed CONTRAST MATERIAL: Intravenous: none Oral: None COMPARISON: No exams were available for comparison FINDINGS: VISUALIZED LUNG BASES: No nodules nor pleural effusions evident. Sternotomy wires noted. Heart size appears normal. No obvious pericardial effusion. ABDOMEN: There is no ascites. LIVER: There are no obvious focal hepatic lesions evident of this noninfused study. GALLBLADDER/BILIARY: The gallbladder is surgically absent. CBD is not dilated. PANCREAS: No evidence of pancreatic mass nor dilatation of the pancreatic duct. SPLEEN: Spleen is not enlarged. No obvious intrasplenic lesions. ADRENALS: There are no significant adrenal masses. KIDNEYS:Left kidney unremarkable. There is a small 2 millimeter calcification in the hilar region wh ich appears to be probably vascular. There are no calculi in the nondilated left ureter. In the opp osite-right kidney there is mild perinephric streaking. No hydronephrosis nor hydroureter evident. There are no radiopaque calculi seen within the ureters nor within the urinary bladder lumen. ABDOMINAL AORTA: The abdominal aorta is peripherally calcified but not enlarged. Common iliac arteri es are also calcified but not enlarged. LYMPH NODES: There is no retroperitoneal nor paraaortic adenopathy. ABDOMINAL WALL: No evidence of significant anterior abdominal wall nor inguinal hernia. GI: There is no evidence of bowel obstruction, free air, nor abscess. PELVIS: LYMPH NODES: There is no intrapelvic nor inguinal adenopathy. GI: The appendix is surgically absent.No evidence of significant sigmoid diverticular disease. URINARY BLADDER: No obvious findings. REPRODUCTIVE: The uterus is surgically absent. There are no abnormal adnexal masses and there is no fluid in the pelvis. OSSEOUS: No significant osseous lesions. No fractures. IMPRESSION: 1. There is evidence of previous cholecystectomy and hysterectomy and prior appendectomy. There is n o significant dilatation of the biliary tree. No abnormal adnexal findings. No evidence of bowel ob struction and no ascites. 2. There is mild perirenal streaking on the right side without evidence of hydronephrosis nor hydrou reter nor intrarenal calculi. Correlation with any clinical signs of pyelonephritis recommended. Th ere are no radiopaque calculi noted in the right collecting system Called by myself to ER physician 11/08/2023 1:22 p.m. RADIATION DOSE DELIVERED: 742.11mGy.cm Total DLP DATA REPOSITORY: All CT scans at this facility are submitted to the National Radiology Data Registry (NRDR) Dose Index Registry (DIR) with the [employer] ([employer]). RADIATION OPTIMIZATION: All CT scans at this facility use at least one of these dose optimization te chniques: automated exposure control; mA and/or kV adjustment per patient size (includes targeted exa ms where dose is matched to clinical indication); or iterative reconstruction.
[2023-11-08 12:57] LABS: ALT 19 U/L (14-59); AST 10 U/L (15-37); Albumin 3.8 g/dL (3.4-5.0); Alkaline Phosphatase 109 U/L (46-116); Anion Gap 9.7 mmol/L (3-11); BUN 12 mg/dL (7-18); Bilirubin, Direct 0.1 mg/dL (0.0-0.2); Bilirubin, Total 0.49 mg/dL (0.2-1.0); CO2 25.3 mmol/L (21.0-32.0); CREATININE 0.8 mg/dL (0.55-1.02); Calcium 9.5 mg/dL (8.5-10.1); Chloride 95 mmol/L (98-107); Estimated GFR 90.27 (mL/min/1.73m2); Glucose 361 mg/dL (74-106); Lipase 201 U/L (16-77); Magnesium 1.6 mg/dL (1.8-2.4); Potassium 4.2 mmol/L (3.5-5.1); Sodium 130 mmol/L (136-145)
[2023-11-08] MEDS: Ciprofloxacin 500 MG TAB PO (13:36)
[2023-11-08 13:59] VITALS: BP 114/74; PULSE 86; RESP 16; O2SAT 99
== END 2023-11-08 14:00 | disposition home or self-care (01) ==
PROVIDERS: Emergency Provider Emergency Medicine
DX: N39.0 Urinary tract infection, site not specified (principal); Z79.01 Long term (current) use of anticoagulants; Z79.82 Long term (current) use of aspirin; Z90.49 Acquired absence of other specified parts of digestive tract; Z90.710 Acquired absence of both cervix and uterus
CPT/HCPCS: 36415; 80053; 83690; 96365; 99284; 74176; 81003; 81015; 82248; 83735; 85025; J0131

== ENCOUNTER 2023-11-12 13:22 | Emergency (ER) | payer MEDICAID, SELFPAY ==
[2023-11-12 13:25] VITALS: BP 120/84; PULSE 109; RESP 20; TEMP 36.3; O2SAT 99
[2023-11-12 13:47] LABS: Bilirubin Negative (Negative); Blood Negative (Negative); Clarity Clear (Clear); Glucose >=1000 mg/dL (Negative); Ketones Negative (Negative); Leukocyte Esterase Negative (Negative); Nitrite Negative (Negative); Urobilinogen 0.2 mg/dL (Up to 0.2)
[2023-11-12] MEDS: Gabapentin 300 MG CAP 600 MG PO (13:56)
[2023-11-12] MEDS: Acetaminophen 500 MG TAB 1000 MG PO (13:56)
[2023-11-12 14:03] VITALS: PULSE 101
[2023-11-12 14:13] LABS: Bacteria Few HPF (Negative); C & S Indicated? No/Sq. Contamination; Casts Negative LPF (Negative); Crystals Negative HPF (Negative); Epithelial Cells Moderate HPF (Negative); Mucus Negative (Negative); RBC 0-2 HPF (0-2)
[2023-11-12 14:18] VITALS: PULSE 70
--- NOTE | 2023-11-12 15:18 | ED.GENADUL_ITS ---
Discharge Plan Disposition Patient Disposition: Home Condition: Stable Discharge Details Clinical Impression: Right flank pain Primary Care Provider: Jenn,Local ED Provider: Amira Varghese Home Meds and New Rx's Prescriptions: New gabapentin 300 mg capsule 300 mg PO TID PRN (Reason: pain) Qty: 30 0RF valacyclovir [Valtrex] 1 gram tablet 1,000 mg PO Q8H 7 Days Qty: 21 0RF No Action epinephrine [EpiPen 2-Seven] 0.3 MG/0.3 ML auto-injector 0.3 mg IM DIRECTED PRN isosorbide mononitrate 30 mg tablet extended release 24 hr 30 mg PO DAILY Patient Comments: take 1 tablet by mouth every morning melatonin 3 mg Tablet 9 mg PO HS clopidogrel 75 mg tablet 75 mg PO DAILY Patient Comments: take 1 tablet by mouth once daily acetaminophen [Tylenol Extra Strength] 500 mg Tablet 1,000 mg PO Q4-5H nitroglycerin 0.4 mg Tablet, Sublingual 0.4 mg sublingual Q5 MIN PRN X3 PRN hydroxyzine HCl 25 mg tablet 50 mg PO HS Patient Comments: TAKE 1 TABLET BY MOUTH NIGHTLY NEEDED FOR ANXIETY AND SLEEP ezetimibe 10 mg tablet 10 mg PO HS Patient Comments: take 1 tablet by mouth nightly Entresto 24-26 mg Tablet 0.5 tab PO BID aspirin 81 mg Capsule,Delayed Release(Dr/Ec) 81 mg PO DAILY metoprolol succinate [Toprol XL] 25 mg Tablet Extended Release 24 Hr 25 mg PO DAILY ciprofloxacin HCl 500 mg tablet 500 mg PO BID Qty: 14 0RF Discharge Instructions Instructions: Shingles Additional Instructions: * SYMPTOMS DON'T SEEM CONSISTENT WITH KIDNEY INFECTION OR STONE * PAIN LIKELY EARLY SHINGLES OR MUSCLE PAIN. * IF YOU DEVELOP RASH, PLEASE START THE PROVIDED VALTREX PRESCRIPTION * YOU HAVE ELEVATED GLUCOSE LEVELS AND WOULD BENEFIT FROM MEDICATION * PLEASE RETURN IF YOU DEVELOP FEVER, WORSENING PAIN * TAKE TYLENOL AND THE GABAPENTIN PRESCRIBED HPI General Date/Time Provider Initiated Documentation: 11/12/23 13:26 . Limitations to Documentation: no limitations . Information obtained by: patient . HPI Narrative: 47-year-old female with past medical history including CAD s/p CABG x 2, hypertension, diabetes (noncompliant with medications), presents for reevaluation of ongoing right flank pain. The patient states that she was evaluated in the emergency department with concern for right flank pain and diagnosed with a urinary tract infection. She states that she took 3 days of the ciprofloxacin, but that it was causing her to have palpitations so she stopped it. She denies any fever, vomiting chills or dysuria. She reports persistent right flank pain. She reports that the pain is so severe she cannot touch the area or leaning back against the chair Related Data Home Medications ?Medication ?Instructions ?Recorded ?Confirmed epinephrine 0.3 mg/0.3 mL 0.3 mg IM DIRECTED PRN 04/16/16 11/12/23 injection, auto-injector (EpiPen 2-Seven) acetaminophen 500 mg tablet 1,000 mg PO Q4-5H 04/12/20 11/12/23 (Tylenol Extra Strength) aspirin 81 mg capsule,delayed 81 mg PO DAILY 04/12/20 11/12/23 release clopidogrel 75 mg tablet 75 mg PO DAILY 04/12/20 11/12/23 ezetimibe 10 mg tablet 10 mg PO HS 04/12/20 11/12/23 hydroxyzine HCl 25 mg tablet 50 mg PO HS 04/12/20 11/12/23 isosorbide mononitrate 30 mg 30 mg PO DAILY 04/12/20 11/12/23 tablet,extended release 24 hr melatonin 3 mg tablet 9 mg PO HS 04/12/20 11/12/23 metoprolol succinate 25 mg 25 mg PO DAILY 04/12/20 11/12/23 tablet,extended release 24 hr (Toprol XL) nitroglycerin 0.4 mg sublingual 0.4 mg sublingual Q5 MIN PRN X3 PRN 04/12/20 11/12/23 tablet sacubitril 24 mg-valsartan 26 mg 0.5 tab PO BID 04/12/20 11/12/23 tablet (Entresto) ciprofloxacin HCl 500 mg tablet 500 mg PO BID #14 tabs 11/08/23 11/12/23 gabapentin 300 mg capsule 300 mg PO TID PRN pain #30 caps 11/12/23 valacyclovir 1 gram tablet 1,000 mg PO Q8H 7 days #21 tabs 11/12/23 (Valtrex) Previous Rx's ?Medication ?Instructions ?Recorded ciprofloxacin HCl 500 mg tablet 500 mg PO BID #14 tabs 11/08/23 gabapentin 300 mg capsule 300 mg PO TID PRN pain #30 caps 11/12/23 valacyclovir 1 gram tablet 1,000 mg PO Q8H 7 days #21 tabs 11/12/23 (Valtrex) Allergies Allergy/AdvReac Type Severity Reaction Status Date / Time bee pollen Allergy Severe Anaphylaxsi Unverified 11/12/23 13:27 s mushroom Allergy Severe Anaphylaxsi Unverified 11/12/23 13:27 s Penicillins Allergy Severe Anaphylaxsi Unverified 11/12/23 13:27 s doxycycline Allergy Intermediate Hives Unverified 11/12/23 13:27 sumatriptan (From Imitrex) Allergy Intermediate Skin Rash Unverified 11/12/23 13:27 sumatriptan succinate (From Allergy Intermediate Skin Rash Unverified 11/12/23 13:27 Imitrex) tramadol Allergy Intermediate Hives Unverified 11/12/23 13:27 erythromycin base Allergy Mild Hives Unverified 11/12/23 13:27 (Erythromycin Base) General Stated Complaint: Urinary JACIEL: 3 Exam Narrative Exam Narrative: Review of Systems: All systems reviewed & are unremarkable except as noted in HPI and below Well-developed, no acute distress NCAT PERRL, normal conjunctiva RRR no murmur Unlabored respiratory effort clear bilaterally Nondistended abdomen soft nontender No CVA tenderness Localizes pain to the mid right back flank No rashes or lesions. Course Vital Signs Vital signs: Vital Signs Temperature 36.3 C L 11/12/23 13:25 Pulse 109 H 11/12/23 13:25 Respiratory Rate 20 11/12/23 13:25 Blood Pressure 120/84 11/12/23 13:25 Pulse Oximetry 99 11/12/23 13:25 Temperature 36.3 C L 11/12/23 13:25 Temperature Source Skin 11/12/23 13:25 Pulse 70 11/12/23 14:18 Respiratory Rate 20 11/12/23 13:25 Blood Pressure 120/84 11/12/23 13:25 Blood Pressure Position Sitting 11/12/23 13:25 Pulse Oximetry 99 11/12/23 13:25 Oxygen Delivery Method Room Air 11/12/23 13:25 Oxygen Flow Rate 0 11/12/23 13:25 Pain Level 8 11/12/23 14:32 Lab/Test Results Lab/Test Results: Laboratory Tests Range/Units 11/12/23 13:32 Urine Color (Yellow) Yellow Urine Clarity (Clear) Clear Urine pH (5-8) 6.0 Ur Specific [place] (1.005-1.025) 1.010 Urine Protein (Neg-Trace) mg/dL Negative Urine Ketones (Negative) mg/dL Negative Urine Blood (Negative) Negative Urine Nitrite (Negative) Negative Urine Bilirubin (Negative) Negative Urine Urobilinogen (Up to 0.2) mg/dL 0.2 Ur Leukocyte Esterase (Negative) Negative Urine RBC (0-2) HPF 0-2 Urine WBC (0-5) HPF 10-20 H Ur Epithelial Cells (Negative) HPF Moderate Urine Crystals (Negative) HPF Negative Urine Bacteria (Negative) HPF Few Urine Casts (Negative) LPF Negative Urine Mucus (Negative) Negative Ur Culture Indicated? No/Sq. Contamination Urine Glucose (Negative) mg/dL >=1000 H Medical Decision Making Emergent evaluation of right flank pain. I have reviewed the patient's recent emergency department visit and workup. At that time she did have an equivocal urinalysis and some stranding on her CT and was treated for urinary tract infection. A urine culture was not sent at that time. She has taken 3 days of the Cipro. Her lab work at that time did not indicate any leukocytosis. Patient did have a mild elevation in her lipase though there are no signs of pancreatitis or concern for epigastric abdominal pain. I do note hyperglycemia and excessive glucosuria. The patient reports that she is not compliant with her diabetes medication because she does not like. Lab work at prior visit there was no signs of DKA and I do not suspect that hyperglycemia is contributing to her flank pain. The location of the pain is not consistent with CVA tenderness. It is very localized and tender greater than what I would expect for musculoskeletal pain. I reviewed the CT scan from her last visit and did not note a renal stone or any significant abnormality in that area. No signs of aortic pathology either. Given her hypersensitivity, I am concerned for possible early shingles. She was given gabapentin in the emergency department and provided a prescription for this as well. We discussed the possibility of early shingles and that she may develop a rash. I advised that she watch for this closely and if it does develop she should start the [place] prescription provided to her. She is having difficulty establishing care in the area and does not currently have a primary care provider. She does have some follow-up appointments scheduled but nothing soon. I've advised her to monitor her blood sugar and symptoms. If worsening, should return here for re-pedro luation. Quality:SDOH Health Related Social Needs: No Data to Display PFSH All Active Problems UTI (urinary tract infection) (Acute) Right flank pain (Acute) No-show for appointment (Acute) Cough (Acute) Medical History Obesity Chronic back pain Seizures Hidradenitis axillaris Surgical History section Abdominal hysterectomy Cholecystectomy Bilateral salpingectomy with oophorectomy Appendectomy Social History Smoking/Tobacco Use Status: Former Tobacco Use Smoking risk assessment performed?: Yes Alcohol Intake: never Drug use: Never Substance use type: does not use Housing: apartment Do you feel safe at home: Yes Do you feel safe in your relationship?: Yes
== END 2023-11-12 14:32 | disposition home or self-care (01) ==
PROVIDERS: Emergency Provider Emergency Medicine
DX: R10.31 Right lower quadrant pain (principal)
CPT/HCPCS: 99283; 81003; 81015

== ENCOUNTER 2023-11-15 13:26 | Emergency (ER) | payer MEDICAID, SELFPAY ==
[2023-11-15 13:29] VITALS: BP 143/94; PULSE 105; RESP 28; TEMP 36.3; O2SAT 98
--- NOTE | 2023-11-15 13:33 | W.ED.GENAD ---
Discharge Plan Disposition Patient Disposition: Home Discharge Details Clinical Impression: Acute right flank pain Primary Care Provider: Jenn,Local ED Provider: Larry Russell [place] Meds and New Rx's Prescriptions: New lidocaine [Lidoderm] 5 % adhesive patch,medicated 1 patch topical DAILY Qty: 15 0RF Rx Instructions: leave on most painful area for up to 12 hrs methocarbamol 500 mg tablet 500 mg PO TID Qty: 20 0RF Continued gabapentin 300 mg capsule 300 mg PO TID PRN (Reason: pain) Qty: 30 0RF epinephrine [EpiPen 2-Seven] 0.3 MG/0.3 ML auto-injector 0.3 mg IM DIRECTED PRN isosorbide mononitrate 30 mg tablet extended release 24 hr 30 mg PO DAILY Patient Comments: take 1 tablet by mouth every morning melatonin 3 mg Tablet 9 mg PO HS clopidogrel 75 mg tablet 75 mg PO DAILY Patient Comments: take 1 tablet by mouth once daily acetaminophen [Tylenol Extra Strength] 500 mg Tablet 1,000 mg PO Q4-5H nitroglycerin 0.4 mg Tablet, Sublingual 0.4 mg sublingual Q5 MIN PRN X3 PRN hydroxyzine HCl 25 mg tablet 50 mg PO HS Patient Comments: TAKE 1 TABLET BY MOUTH NIGHTLY NEEDED FOR ANXIETY AND SLEEP Entresto 24-26 mg Tablet 0.5 tab PO BID aspirin 81 mg Capsule,Delayed Release(Dr/Ec) 81 mg PO DAILY metoprolol succinate [Toprol XL] 25 mg Tablet Extended Release 24 Hr 25 mg PO DAILY Discharge Instructions Additional Instructions: You are seen in the emergency department for your flank pain. Your lab work shows that you have no signs of pancreatitis and you are kidneys are working well. Please return to the emergency department if you develop worsening pain if you develop nausea vomiting chest pain or any difficulty breathing. Referrals been placed for you to have a primary care provider. HPI General Date/Time Provider Initiated Documentation: 11/15/23 13:27. HPI Narrative: MDM This is an overall well-appearing mildly tachycardic but afebrile 47-year-old female with recurrent right flank pain concerning for multiple etiologies. Patient has only had several doses of her ciprofloxacin and certainly could have pyelonephritis we will obtain urinalysis. No pain out of proportion to suggest necrotizing soft tissue infection. Patient did have a mildly elevated lipase so we will obtain repeat lipase to ensure patient does not have pancreatitis in the setting of her elevated BMI. No rash to flank to suggest zoster. No trauma so doubt intra-abdominal hemorrhage I do not feel the patient requires a repeat CT scan. Recent CT scan without ureterolithiasis so my suspicion is low for ureterolithiasis. Patient has been nauseous but has not been vomiting so we will will treat with ondansetron. No chest pain to suggest ACS I did not obtain an ECG. No history of AAA so my suspicion is low for ruptured AAA. Given no vomiting my suspicion is low for small bowel obstruction despite prior history of cholecystectomy appendectomy hysterectomy. No right upper quadrant tenderness to suggest acute cholecystitis. CT scan reviewed from last week showing mild Jose nephric streaking right sided without hydro. Given no intrarenal calculi my suspicion is low for ureterolithiasis I did not feel the patient required a repeat CT scan. No history of trauma no midline back pain so my suspicion is low for pathological fracture in the absence of malignancy. 2:30 PM CBC lacks anemia thrombocytopenia and leukocytosis. Negative hCG. Comprehensive metabolic panel significant for marked hyperglycemia with a serum glucose of 543. No anion gap. Normal bicarbonate??not consistent with DKA. Given that this is about 500 and patient will not be able to detect her glucose level accurately on her home glucometer will treat with 5 units of IV insulin. Mild pseudohyponatremia. Normal LFTs. Lipase improved compared to prior at 193 which is less than 3 times upper limit of normal not consistent with pancreatitis. No PATRICE. 3 PM I have asked health community service representative Andra to have the patient establish with a primary care provider given her history of hyperglycemia. Patient reports that she has glucose monitoring devices at home. 4:45 PM Repeat fingerstick blood glucose less than 400. Patient understood her return indications including worsening pain rash falls or fevers. She was discharged with empiric trial of expectant outpatient management. I provided her with a Lidoderm patch and a prescription for a short course of methocarbamol. Chronic conditions affecting the care of the patient: Uncontrolled diabetes elevated BMI History obtained from an outside historian: N/A External record review: N/A Medications: Fluids ondansetron hydromorphone Social determinants of health affecting disposition: N/A Management discussed with: N/A Treatment/interventions considered: N/A Response to therapies provided: Improved symptoms in the ED HPI This is a 47-year-old female with a history of elevated BMI and diabetes right in the emergency department via private vehicle in setting of flank pain. Patient reports that she was seen in the emergency department last week and found to have right flank pain. She had a CT scan performed which was negative for ureterolithiasis. She had mildly elevated lipase level. She was diagnosed with pyelonephritis and placed on ciprofloxacin. She became nauseous and only took 3 doses of ciprofloxacin. She return to the emergency department earlier this week with recurrent right flank pain. There was concern for the possibility of early herpes zoster and patient received outpatient prescription for as needed valacyclovir. She has not noticed any rash. She has had persistent nausea and an unintentional 6 pound weight loss as she has nausea every time she tries to eat. She denies persistent dysuria and frequency. No fevers. She denies routine tobacco, ethanol, and illicits. She has subsequently taken 2 courses of fluconazole as she had vaginal candidiasis but this has improved. Surgical history significant for remote appendectomy cholecystectomy and hysterectomy. Medical history significant for prior CABG. No chest pain nor syncope. Exam General: Well-appearing in no acute distress speaking in complete sentences. Head: Normocephalic, atraumatic. Eye: Extraocular eye movements intact. No conjunctival injection. No scleral icterus. Ear, nose, mouth, throat: Grossly normal inspection. Normal voice, handling secretions normally. Neck: Trachea midline. Cardiovascular: Well-perfused distal extremities. Regular rate and rhythm Respiratory: Nonlabored respiration. Clear lungs bilaterally Gastrointestinal: Nondistended abdomen. Soft. Minimal epigastric tenderness. No rebound. No guarding. Back: Mild right-sided CVA tenderness. No rash to back. Musculoskeletal: No edema. Moving all 4 extremities spontaneously. Skin: Normal for age and race, grossly normal temperature and turgor. No acute rash. Neurologic: Alert and appropriate, no apparent acute deficits. Psychiatric: Mood and manner are appropriate. Grooming and personal hygiene are appropriate. Related Data Home Medications ?Medication ?Instructions ?Recorded ?Confirmed epinephrine 0.3 mg/0.3 mL 0.3 mg IM DIRECTED PRN 04/16/16 11/15/23 injection, auto-injector (EpiPen 2-Seven) acetaminophen 500 mg tablet 1,000 mg PO Q4-5H 04/12/20 11/15/23 (Tylenol Extra Strength) aspirin 81 mg capsule,delayed 81 mg PO DAILY 04/12/20 11/15/23 release clopidogrel 75 mg tablet 75 mg PO DAILY 04/12/20 11/15/23 hydroxyzine HCl 25 mg tablet 50 mg PO HS 04/12/20 11/15/23 isosorbide mononitrate 30 mg 30 mg PO DAILY 04/12/20 11/15/23 tablet,extended release 24 hr melatonin 3 mg tablet 9 mg PO HS 04/12/20 11/15/23 metoprolol succinate 25 mg 25 mg PO DAILY 04/12/20 11/15/23 tablet,extended release 24 hr (Toprol XL) nitroglycerin 0.4 mg sublingual 0.4 mg sublingual Q5 MIN PRN X3 PRN 04/12/20 11/15/23 tablet sacubitril 24 mg-valsartan 26 mg 0.5 tab PO BID 04/12/20 11/15/23 tablet (Entresto) gabapentin 300 mg capsule 300 mg PO TID PRN pain #30 caps 11/12/23 11/15/23 lidocaine 5 % topical patch 1 patch topical DAILY #15 ea 11/15/23 (Lidoderm) methocarbamol 500 mg tablet 500 mg PO TID #20 tabs 11/15/23 Previous Rx's ?Medication ?Instructions ?Recorded gabapentin 300 mg capsule 300 mg PO TID PRN pain #30 caps 11/12/23 lidocaine 5 % topical patch 1 patch topical DAILY #15 ea 11/15/23 (Lidoderm) methocarbamol 500 mg tablet 500 mg PO TID #20 tabs 11/15/23 Allergies Allergy/AdvReac Type Severity Reaction Status Date / Time bee pollen Allergy Severe Anaphylaxsi Unverified 11/15/23 13:33 s mushroom Allergy Severe Anaphylaxsi Unverified 11/15/23 13:33 s Penicillins Allergy Severe Anaphylaxsi Unverified 11/15/23 13:33 s doxycycline Allergy Intermediate Hives Unverified 11/15/23 13:33 sumatriptan (From Imitrex) Allergy Intermediate Skin Rash Unverified 11/15/23 13:33 sumatriptan succinate (From Allergy Intermediate Skin Rash Unverified 11/15/23 13:33 Imitrex) tramadol Allergy Intermediate Hives Unverified 11/15/23 13:33 erythromycin base Allergy Mild Hives Unverified 11/15/23 13:33 (Erythromycin Base) General Stated Complaint: Abd Prob JACIEL: 3 Course Vital Signs Vital signs: Vital Signs Temperature 36.3 C L 11/15/23 13:29 Pulse 105 H 11/15/23 13:29 Respiratory Rate 28 H 11/15/23 13:29 Blood Pressure 143/94 H 11/15/23 13:29 Pulse Oximetry 98 11/15/23 13:29 Temperature 36.3 C L 11/15/23 13:29 Temperature Source Oral 11/15/23 13:29 Pulse 105 H 11/15/23 13:29 Respiratory Rate 28 H 11/15/23 13:29 Blood Pressure 143/94 H 11/15/23 13:29 Blood Pressure Position Sitting 11/15/23 13:29 Pulse Oximetry 98 11/15/23 13:29 Oxygen Delivery Method Room Air 11/15/23 13:29 Oxygen Flow Rate 0 11/15/23 13:29 Pain Level 7 11/15/23 13:29 Medical Decision Making Quality:SDOH Health Related Social Needs: No Data to Display PFSH All Active Problems (Updated 11/15/23 @ 15:52 by Larry Russell MD) Acute right flank pain (Acute) UTI (urinary tract infection) (Acute) Right flank pain (Acute) No-show for appointment (Acute) Cough (Acute) Medical History Obesity Chronic back pain Seizures Hidradenitis axillaris Surgical History section Abdominal hysterectomy Cholecystectomy Bilateral salpingectomy with oophorectomy Appendectomy Social History Smoking/Tobacco Use Status: Former Tobacco Use Smoking risk assessment performed?: Yes Alcohol Intake: never Drug use: Never Substance use type: does not use Housing: apartment Do you feel safe at home: Yes Do you feel safe in your relationship?: Yes
[2023-11-15 14:04] LABS: Abs Immature Grans 0.02 10^3/uL (0.0-0.06); Absolute Basophil Count 0.08 10^3/uL (0.0-0.2); Absolute Eosinophil Count 0.12 10^3/uL (0.0-0.7); Absolute Lymphocyte Count 3.26 10^3/uL (1.2-3.4); Absolute Monocyte Count 0.58 10^3/uL (0.1-0.8); Absolute Neutrophil Count 5.54 10^3/uL (1.2-6.7); Basophils % 0.8 %; Eosinophils % 1.3 %; HCT 44.2 % (36.0-46.0); HGB 15.8 g/dL (11.2-15.7); Immature Grans % 0.2 %; MCH 31.5 pg (27.0-33.0); MCHC 35.7 % (32.0-36.0); MCV 88 fL (80-95); MPV 9.1 fL (8.0-11.0); Neutrophils % 57.7 %; Platelet Count 355 10^3/uL (130-400); RBC 5.01 10^6/uL (3.93-5.22); RDW 11.9 % (11.7-14.6); RDW-SD 38.3 fL
[2023-11-15] MEDS: Normal Saline 1,000 ML 1000 ML IV (14:12)
[2023-11-15] MEDS: Ondansetron 4 MG/2 ML VIAL IVP (14:12)
[2023-11-15] MEDS: HYDROmorphone 2 MG/ML SYR 0.5 MG IVP (14:13)
[2023-11-15 14:23] LABS: ALT 16 U/L (14-59); AST 10 U/L (15-37); Albumin 3.6 g/dL (3.4-5.0); Alkaline Phosphatase 105 U/L (46-116); Anion Gap 10.1 mmol/L (3-11); BUN 12 mg/dL (7-18); Bilirubin, Total 0.39 mg/dL (0.2-1.0); CO2 23.9 mmol/L (21.0-32.0); Calcium 9.3 mg/dL (8.5-10.1); Chloride 96 mmol/L (98-107); Estimated GFR 69.06 (mL/min/1.73m2); Lipase 193 U/L (16-77); Potassium 3.9 mmol/L (3.5-5.1); Sodium 130 mmol/L (136-145); Total Protein 7.6 g/dL (6.4-8.2)
[2023-11-15 14:27] LABS: HCG Qual (Serum) Negative
[2023-11-15 14:29] LABS: Glucose 543 mg/dL (74-106)
[2023-11-15 14:46] LABS: Bilirubin Negative (Negative); Blood Negative (Negative); Clarity Clear (Clear); Glucose >=1000 mg/dL (Negative); Ketones Negative (Negative); Leukocyte Esterase Negative (Negative); Nitrite Negative (Negative); Specific Gravity <= 1.005 (1.005-1.025); Urobilinogen 0.2 mg/dL (Up to 0.2); pH 5.5 (5-8)
[2023-11-15 14:53] VITALS: BP 113/68; PULSE 94; RESP 20; O2SAT 98
[2023-11-15 15:02] LABS: Bacteria Rare HPF (Negative); Casts 0-2 Hyaline LPF (Negative); Crystals Negative HPF (Negative); Epithelial Cells Moderate HPF (Negative); Mucus Negative (Negative); RBC 0-2 HPF (0-2)
[2023-11-15 15:03] LABS: C & S Indicated? No/Sq. Contamination
[2023-11-15] MEDS: Insulin REGULAR-Human 100 UNITS/ML UNIT IV (15:31)
[2023-11-15] MEDS: Potassium Bicarbonate/Cit AC 25 MEQ TABLET.EFF 50 MEQ PO (15:33)
[2023-11-15] MEDS: Normal Saline 50 ML (15:42)
[2023-11-15 16:14] VITALS: BP 135/79; PULSE 80
[2023-11-15] MEDS: Lidocaine 5% Patch 1 PATCH TP (16:19)
[2023-11-15 16:21] VITALS: BP 135/79; PULSE 80; RESP 20; TEMP 36.3; O2SAT 98
--- NOTE | 2023-11-18 08:59 | NUR.NOTE ---
Accessed chart to check status of referral. Nursing Note:
== END 2023-11-15 16:23 | disposition home or self-care (01) ==
PROVIDERS: Emergency Provider Emergency Medicine
DX: R10.9 Unspecified abdominal pain (principal); E11.65 Type 2 diabetes mellitus with hyperglycemia; Z79.82 Long term (current) use of aspirin; Z79.01 Long term (current) use of anticoagulants; Z87.891 Personal history of nicotine dependence
CPT/HCPCS: 36415; 80053; 82962; 83690; 96361; 96374; 96375; 99284; 81003; 81015; 84703; 85025; 99283; J1170; J1815; J2405

== ENCOUNTER 2023-12-06 14:25 | Emergency (ER) | payer MEDICAID, SELFPAY ==
[2023-12-06 14:30] VITALS: BP 155/90; PULSE 105; RESP 12; TEMP 36.6; O2SAT 98
[2023-12-06] MEDS: Lidocaine 5% Patch 1 PATCH TP (15:41)
--- NOTE | 2023-12-06 15:55 | NUR.NOTE ---
Nursing Note: after medications were given the patient was seen to be walking out the door by environmental services. xray reported her not being in the room. this nurse checked outside to see if she was smoking. She was no where to be seen. Pt eloped and reported to provider.
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
== END 2023-12-06 15:52 | disposition left against medical advice (07) ==
LOC: ER 15:52 → RED 16:03
PROVIDERS: Emergency Provider Emergency Medicine
DX: M25.512 Pain in left shoulder (principal); Z79.02 Long term (current) use of antithrombotics/antiplatelets; Z79.82 Long term (current) use of aspirin; Z87.891 Personal history of nicotine dependence; Z53.29 Procedure and treatment not carried out because of patient's decision for other reasons
CPT/HCPCS: 99283

== ENCOUNTER 2024-02-13 14:25 | Emergency (ER) | payer MEDICAID, SELFPAY ==
[2024-02-13 14:45] VITALS: BP 130/87; PULSE 107; RESP 18; TEMP 36.6; O2SAT 98
--- NOTE | 2024-02-13 14:45 | DI.RAD_ITS ---
Exam(s) XR FOOT RT COMPLETE EXAM: XR FOOT RT COMPLETE CLINICAL HISTORY: bruising, repeated contusions moving furniture. TECHNIQUE: 2D digital imaging was performed. Three views. COMPARISON: No exams were available for comparison FINDINGS: BONES: No acute fracture is present. No bony destructive lesion is seen. Small heel spurs. Ossicle adjacent to the navicular and cuboid. JOINTS: No dislocation present. Minimal degenerative changes. SOFT TISSUE: Normal. IMPRESSION: Unremarkable radiographs of the right foot. DATA REPOSITORY: RADIATION DOSE DELIVERED:
--- NOTE | 2024-02-13 16:13 | ED.GENADUL_ITS ---
Discharge Plan Disposition Patient Disposition: Home Condition: Stable Discharge Details Clinical Impression: Contusion of foot, right, Left shoulder strain Primary Care Provider: JennLocal ED Provider: Manda Shetty Home Meds and New Rx's Prescriptions: No Action epinephrine [EpiPen 2-Seven] 0.3 MG/0.3 ML auto-injector 0.3 mg IM DIRECTED PRN isosorbide mononitrate 30 mg tablet extended release 24 hr 30 mg PO DAILY Patient Comments: take 1 tablet by mouth every morning melatonin 3 mg Tablet 9 mg PO HS clopidogrel 75 mg tablet 75 mg PO DAILY Patient Comments: take 1 tablet by mouth once daily acetaminophen [Tylenol Extra Strength] 500 mg Tablet 1,000 mg PO Q4-5H nitroglycerin 0.4 mg Tablet, Sublingual 0.4 mg sublingual Q5 MIN PRN X3 PRN hydroxyzine HCl 25 mg tablet 50 mg PO HS Patient Comments: TAKE 1 TABLET BY MOUTH NIGHTLY NEEDED FOR ANXIETY AND SLEEP sacubitril-valsartan [Entresto] 24-26 mg Tablet 0.5 tab PO BID aspirin 81 mg Capsule,Delayed Release(Dr/Ec) 81 mg PO DAILY Discharge Instructions Instructions: Minor Contusion ED Additional Instructions: You were seen in the emergency department today for evaluation of swelling and bruising and pain in your right foot after moving a heavy recliner. In our department had a full physical examination performed, and had an x-ray that did not show any broken bones or other concerning findings. You should continue to use your Tylenol, ice and elevation, and follow-up with your orthopedics to discuss any next steps in management of your chronic shoulder pain. If you do have any concerns you should call your primary care provider and discuss reevaluation. Thank you for allowing us to be part of your care. HPI General Date/Time Provider Initiated Documentation: 02/13/24 14:33 . Limitations to Documentation: no limitations . Information obtained by: patient and old records reviewed . HPI Narrative: HPI: This is a 48-year-old female patient with a past medical history sig nificant for left shoulder problems, awaiting total replacements per her report, presenting for evaluation of shoulder and foot injury. Last night the patient and her friend were carrying a very heavy recliner up the stairs, she states that when she was carrying it she set it down and dropped it several times on the top of her right foot. She reports that she also feels like she strained her left shoulder worse than typical. She has been taking her home Tylenol, is not supposed to use ibuprofen due to her Plavix use. She states that she did not sustain any additional injury. She reports that the foot is painful to walk on, and she has noted some bruising and swelling. She has otherwise been in her normal state of health without injury, illness, or fevers. Exam: Gen: Awake and alert, in no apparent distress HEENT: Non-icteric sclera Neck: Supple Lungs: No apparent respiratory distress, normal respiratory effort. CV: Appears well perfused, strong distal pulses Abdomen: Non-distended MSK: Moves 4 extremities without apparent limitation in ROM. The patient has full range of motion of the left shoulder at her baseline, with some limitation in abduction and flexion which she states is unchanged. She has tenderness to palpation over the anterior aspect of her shoulder, no deformities, skin changes, and no neurovascular derangement distal to this injury. The patient's right foot has bruising on the dorsal aspect, full range of motion of the toes, strong DP pulses. She has no deformity over the midfoot, no ankle tenderness. Skin: Visualized skin without rashes, cyanosis. Neuro: Normal Gait, no obvious focal deficits or facial asymmetry. Speaks in full, clear sentences. Psych: Appropriate for situation. MDM: This is a 48-year-old female patient presenting for evaluation of injury to the foot sustained while carrying furniture, as well as strain of her left shoulder. Differential includes but is not limited to fracture, dislocation, contusion, ligamentous injury, strain/sprain, though I am less concerned for neurovascular derangement in this patient after my physical examination. Will obtain an x-ray of the affected right foot to evaluate for injury. I had a shared decision-making conversation with the patient and offered her x-ray imaging of her affected shoulder. Given her long history of chronic shoulder problems, the patient feels that she just overexerted herself, and is desiring of avoiding any additional imaging at this time. Additionally, she does not request any medications for pain at this time, preferring to continue her Tylenol, diclofenac, and other topical treatments at home. ED Course: I dependently interpreted the patient's x-ray, which shows no fractures, dislocations, or other osseous abnormalities. These findings were sh ared with the patient, and I recommended conservative management with Tylenol, ice and elevation, and outpatient primary care follow-up for reevaluation. The patient also has a ability to follow-up with orthopedics for reevaluation of her left shoulder. At this time, the patient has had a full medical evaluation and is safe for discharge to home. They are hemodynamically stable, ambulatory, and tolerating PO. They are understanding of the follow-up plan and return precautions. They left our facility without incident. Manda Shetty MD Related Data Home Medications ?Medication ?Instructions ?Recorded ?Confirmed epinephrine 0.3 mg/0.3 mL 0.3 mg IM DIRECTED PRN 04/16/16 02/13/24 injection, auto-injector (EpiPen 2-Seven) acetaminophen 500 mg tablet 1,000 mg PO Q4-5H 04/12/20 02/13/24 (Tylenol Extra Strength) aspirin 81 mg capsule,delayed 81 mg PO DAILY 04/12/20 02/13/24 release clopidogrel 75 mg tablet 75 mg PO DAILY 04/12/20 02/13/24 hydroxyzine HCl 25 mg tablet 50 mg PO HS 04/12/20 02/13/24 isosorbide mononitrate 30 mg 30 mg PO DAILY 04/12/20 02/13/24 tablet,extended release 24 hr melatonin 3 mg tablet 9 mg PO HS 04/12/20 02/13/24 nitroglycerin 0.4 mg sublingual 0.4 mg sublingual Q5 MIN PRN X3 PRN 04/12/20 02/13/24 tablet sacubitril 24 mg-valsartan 26 mg 0.5 tab PO BID 04/12/20 02/13/24 tablet (Entresto) Allergies Allergy/AdvReac Type Severity Reaction Status Date / Time bee pollen Allergy Severe Anaphylaxsi Unverified 02/13/24 14:48 s mushroom Allergy Severe Anaphylaxsi Unverified 02/13/24 14:48 s Penicillins Allergy Severe Anaphylaxsi Unverified 02/13/24 14:48 s doxycycline Allergy Intermediate Hives Unverified 02/13/24 14:48 sumatriptan (From Imitrex) Allergy Intermediate Skin Rash Unverified 02/13/24 14:48 sumatriptan succinate (From Allergy Intermediate Skin Rash Unverified 02/13/24 14:48 Imitrex) tramadol Allergy Intermediate Hives Unverified 02/13/24 14:48 erythromycin base Allergy Mild Hives Unverified 02/13/24 14:48 (Erythromycin Base) gabapentin AdvReac Intermediate Skin Rash Verified 02/13/24 14:48 General Stated Complaint: Orthopedic JACIEL: 4 Course Vital Signs Vital signs: Vital Signs Temperature 36.6 C 02/13/24 14:45 Pulse 107 H 02/13/24 14:45 Respiratory Rate 18 02/13/24 14:45 Blood Pressure 130/87 02/13/24 14:45 Pulse Oximetry 98 02/13/24 14:45 Temperature 36.6 C 02/13/24 14:45 Pulse 107 H 02/13/24 14:45 Respiratory Rate 18 02/13/24 14:45 Respiratory Effort Normal 02/13/24 14:48 Blood Pressure 130/87 02/13/24 14:45 Pulse Oximetry 98 02/13/24 14:45 Pain Level 7 02/13/24 15:57 Medical Decision Making Quality:SDOH Health Related Social Needs: No Data to Display PFSH All Active Problems (Updated 02/13/24 @ 16:15 by Manda Shetty MD) Left shoulder strain (Acute) Contusion of foot, right (Acute) No-show for appointment (Acute) Cough (Acute) Medical History Obesity Chronic back pain Seizures Hidradenitis axillaris Surgical History section Abdominal hysterectomy Cholecystectomy Bilateral salpingectomy with oophorectomy Appendectomy Social History Smoking/Tobacco Use Status: Former Tobacco Use Smoking risk assessment performed?: Yes Alcohol Intake: never Drug use: Never Substance use type: does not use Housing: apartment Do you feel safe at home: Yes Do you feel safe in your relationship?: Yes
== END 2024-02-13 16:22 | disposition home or self-care (01) ==
PROVIDERS: Emergency Provider Emergency Medicine
DX: M79.671 Pain in right foot (principal); S46.912A Strain of unspecified muscle, fascia and tendon at shoulder and upper arm level, left arm, initial encounter; Z79.01 Long term (current) use of anticoagulants; Z79.82 Long term (current) use of aspirin; Z87.891 Personal history of nicotine dependence; X50.0XXA Overexertion from strenuous movement or load, initial encounter; Y93.89 Activity, other specified; Y92.018 Other place in single-family (private) house as the place of occurrence of the external cause
CPT/HCPCS: 99283; 73630

== ENCOUNTER 2024-03-17 09:07 | Emergency (ER) | payer MEDICAID, SELFPAY ==
[2024-03-17 09:11] VITALS: BP 172/110; PULSE 107; RESP 14; TEMP 36.4; O2SAT 100
--- NOTE | 2024-03-17 09:30 | DI.RAD_ITS ---
Exam(s) XR SHOULDER LT COMPLETE 2+V EXAM: XR SHOULDER LT COMPLETE 2+V CLINICAL HISTORY: left shoulder pain post trauma. TECHNIQUE: 2D digital imaging was performed of the left shoulder. Five images were obtained. AP, G rashey, Y-view and axillary views were obtained. COMPARISON: CR XR SHOULDER LT COMPLETE 2+V from 09/10/2023 FINDINGS: BONES: No acute fracture is present. No bony destructive lesion is seen. JOINTS: No dislocation present. There are degenerative changes seen at the acromioclavicular and ana cristina ohumeral joints. SOFT TISSUE: The patient has had a prior CABG. There is again seen an orthopedic anchor in the humer al head. IMPRESSION: No acute fracture or dislocation. DATA REPOSITORY: RADIATION DOSE DELIVERED:
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
[2024-03-17] MEDS: MORPHine IR 15 MG TAB PO (09:54)
--- NOTE | 2024-03-17 10:04 | DI.CT_ITS ---
Exam(s) CT CHEST WO EXAM: CT CHEST WO CLINICAL HISTORY: truck fell on left side, pain lefscapula, and ribs. TECHNIQUE: Imaging protocol: Axial computed tomography images were obtained and coronal and sagittal reformatted images were created and reviewed. Lung Computer Aided Detection (CAD) was utilized. COMPARISON: CT CT RENAL COLIC WO from 11/08/2023 FINDINGS: The examination is limited due to patient motion artifact. Tracheobronchial tree: Patent where visualized. No bronchiectasis is present. Pulmonary parenchyma: No consolidation or dominant measurable mass. There is scarring seen in the lef t upper lobe. Mediastinum and Orin: No dominant adenopathy or fluid collection. The esophagus is unremarkable. Thyroid gland: Unremarkable. Pleura: No effusion or pneumothorax. Heart: The heart is not dilated. The patient is status post CABG. Coronary artery calcifications are present. No pericardial effusion. Aorta: Thoracic aorta non-dilated. Atherosclerotic calcification is present. Upper abdomen: Status post cholecystectomy. Lymph nodes: Within normal limits. Soft tissues: Unremarkable. Bones:Within normal limits for the patient's age. No displaced rib fractures are seen. The visualiz ed portions of the scapulae are intact. IMPRESSION: No acute pulmonary process. RADIATION DOSE DELIVERED: 376.65mGy.cm Total DLP 376.65mGy.cm Total DLP DATA REPOSITORY: All CT scans at this facility are submitted to the National Radiology Data Registry (NRDR) Dose Index Registry (DIR) with the [employer] (ACR). RADIATION OPTIMIZATION: All CT scans at this facility use at least one of these dose optimization te chniques: automated exposure control; mA and/or kV adjustment per patient size (includes targeted exa ms where dose is matched to clinical indication); or iterative reconstruction.
--- NOTE | 2024-03-17 10:04 | DI.CT_ITS ---
Exam(s) CT CERVICAL SPINE WO EXAM: CT CERVICAL SPINE WO CLINICAL HISTORY: neck pain post. TECHNIQUE: Imaging Protocol: Axial computed tomography images with coronal and sagittal reformatted images were created and reviewed COMPARISON: CT CT CHEST WO from 03/17/2024 FINDINGS: Bones: No acute fracture or subluxation. Age-appropriate degenerative changes are present. There is straightening of the normal cervical lordosis. This may be due to muscle spasm or patient positionin g. Soft Tissues: Unremarkable. Lung Apices: Clear. IMPRESSION: No acute fracture or subluxation in the cervical spine. RADIATION DOSE DELIVERED: 406.72mGy.cm Total DLP 406.72mGy.cm Total DLP DATA REPOSITORY: All CT scans at this facility are submitted to the National Radiology Data Registry (NRDR) Dose Index Registry (DIR) with the [employer] (ACR). RADIATION OPTIMIZATION: All CT scans at this facility use at least one of these dose optimization te chniques: automated exposure control; mA and/or kV adjustment per patient size (includes targeted exa ms where dose is matched to clinical indication); or iterative reconstruction.
[2024-03-17 10:32] LABS: Abs Immature Grans 0.01 10^3/uL (0.0-0.06); Absolute Basophil Count 0.08 10^3/uL (0.0-0.2); Absolute Eosinophil Count 0.19 10^3/uL (0.0-0.7); Absolute Lymphocyte Count 3.22 10^3/uL (1.2-3.4); Absolute Monocyte Count 0.48 10^3/uL (0.1-0.8); Absolute Neutrophil Count 3.76 10^3/uL (1.2-6.7); Eosinophils % 2.5 %; HCT 46.6 % (36.0-46.0); HGB 16.5 g/dL (11.2-15.7); Immature Grans % 0.1 %; Lymphocytes % 41.6 %; MCHC 35.4 % (32.0-36.0); MCV 88 fL (80-95); MPV 9.3 fL (8.0-11.0); Monocytes % 6.2 %; Neutrophils % 48.6 %; Platelet Count 306 10^3/uL (130-400); RBC 5.32 10^6/uL (3.93-5.22); RDW 11.9 % (11.7-14.6); RDW-SD 38.2 fL; WBC 7.74 10^3/uL (4.4-10.8)
[2024-03-17 10:50] LABS: ALT 13 U/L (14-59); AST 7 U/L (15-37); Albumin 3.8 g/dL (3.4-5.0); Alkaline Phosphatase 121 U/L (46-116); Anion Gap 9.5 mmol/L (3-11); BUN 10 mg/dL (7-18); CO2 26.5 mmol/L (21.0-32.0); CREATININE 0.9 mg/dL (0.55-1.02); Calcium 9.5 mg/dL (8.5-10.1); Chloride 98 mmol/L (98-107); Estimated GFR 77.88 (mL/min/1.73m2); Glucose 474 mg/dL (74-106); Potassium 4.6 mmol/L (3.5-5.1); Sodium 134 mmol/L (136-145); Total Protein 7.7 g/dL (6.4-8.2)
[2024-03-17 10:51] LABS: Acetaminophen < 2 ug/mL (10-30)
[2024-03-17] MEDS: MORPHine IR 15 MG TAB, 4 TABS/BTL PO (11:14)
[2024-03-17 11:15] VITALS: BP 129/101; PULSE 103; RESP 14; O2SAT 98
== END 2024-03-17 11:23 | disposition home or self-care (01) ==
PROVIDERS: Emergency Provider Physician Assistant
DX: M25.512 Pain in left shoulder (principal); W22.8XXA Striking against or struck by other objects, initial encounter
CPT/HCPCS: 71250; 80053; 99284; 72125; 73030; 80329; 85025; 99283

== ENCOUNTER 2024-04-07 16:57 | Outpatient (REF) | payer MEDICAID, SELFPAY ==
[2024-04-07 18:48] LABS: Abs Immature Grans 0.02 10^3/uL (0.0-0.06); Absolute Basophil Count 0.08 10^3/uL (0.0-0.2); Absolute Eosinophil Count 0.15 10^3/uL (0.0-0.7); Absolute Lymphocyte Count 3.38 10^3/uL (1.2-3.4); Absolute Monocyte Count 0.41 10^3/uL (0.1-0.8); Absolute Neutrophil Count 3.94 10^3/uL (1.2-6.7); Eosinophils % 1.9 %; HGB 15.5 g/dL (11.2-15.7); Immature Grans % 0.3 %; Lymphocytes % 42.4 %; MCH 31.4 pg (27.0-33.0); MCHC 35.2 % (32.0-36.0); MCV 89 fL (80-95); MPV 9.4 fL (8.0-11.0); Monocytes % 5.1 %; Neutrophils % 49.3 %; Platelet Count 318 10^3/uL (130-400); RBC 4.93 10^6/uL (3.93-5.22); RDW 12.1 % (11.7-14.6); RDW-SD 39.8 fL; WBC 7.98 10^3/uL (4.4-10.8)
[2024-04-07 19:18] LABS: COMMENT (LAB VIEW ONLY) 32.13 mg/dL; Microalb ug/mg Crea 9.6 ug/mg Cr
[2024-04-07 19:44] LABS: Hemoglobin A1C > 13.0 % (<5.7)
[2024-04-07 19:51] LABS: Anion Gap 9.8 mmol/L (3-11); BUN 11 mg/dL (7-18); CO2 25.2 mmol/L (21.0-32.0); CREATININE 0.8 mg/dL (0.55-1.02); Calcium 9.5 mg/dL (8.5-10.1); Calculated LDL 219 mg/dL (<100); Chloride 101 mmol/L (98-107); Cholesterol 329 mg/dL (<200); Estimated GFR 89.71 (mL/min/1.73m2); Glucose 393 mg/dL (74-106); HDL Cholesterol 50 mg/dL (40-60); Sodium 136 mmol/L (136-145); TSH 3.74 uIU/mL (0.36-3.74); Triglyceride 304 mg/dL (<150); Vitamin D 25 Total 6.3 ng/mL (30-100)
== END 2024-04-07 16:58 | disposition home or self-care (01) ==
LOC: NCHCN 16:57
PROVIDERS: Visit Provider Family Medicine
DX: E11.69 Type 2 diabetes mellitus with other specified complication (principal); E78.5 Hyperlipidemia, unspecified; Z79.891 Long term (current) use of opiate analgesic; E66.9 Obesity, unspecified
CPT/HCPCS: 80048; 80061; 82306; 82043; 82570; 83036; 84443; 85025

== ENCOUNTER 2024-06-18 12:15 | Outpatient (REF) | payer MEDICAID, SELFPAY ==
[2024-06-18 16:01] LABS: ALT 24 U/L (14-59); AST 12 U/L (15-37); Albumin 3.6 g/dL (3.4-5.0); Alkaline Phosphatase 110 U/L (46-116); Anion Gap 10.8 mmol/L (3-11); BUN 12 mg/dL (7-18); Bilirubin, Total 0.3 mg/dL (0.2-1.0); CO2 24.2 mmol/L (21.0-32.0); CREATININE 0.8 mg/dL (0.55-1.02); Calcium 9.5 mg/dL (8.5-10.1); Calculated LDL 207 mg/dL (<100); Chloride 101 mmol/L (98-107); Cholesterol 305 mg/dL (<200); Estimated GFR 89.71 (mL/min/1.73m2); Glucose 337 mg/dL (74-106); HDL Cholesterol 57 mg/dL (>or=50); Potassium 4.1 mmol/L (3.5-5.1); Sodium 136 mmol/L (136-145); Total Protein 6.9 g/dL (6.4-8.2); Triglyceride 206 mg/dL (<150)
[2024-06-18 16:52] LABS: Hemoglobin A1C 11.4 % (<5.7)
== END 2024-06-18 12:16 | disposition home or self-care (01) ==
LOC: NCHCN 12:15
PROVIDERS: PCP Family Medicine; Visit Provider Family Medicine
DX: E11.9 Type 2 diabetes mellitus without complications (principal)
CPT/HCPCS: 80053; 80061; 83036

== ENCOUNTER 2024-10-15 12:37 | Emergency (ER) | payer MEDICAID, SELFPAY ==
[2024-10-15] VITALS (11 sets, daily range): BP systolic 151–180; BP diastolic 76–101; PULSE 74–102; RESP 10–26; TEMP 36.5–37.1; O2SAT 98–100
--- NOTE | 2024-10-15 12:59 | W.ED.GENAD ---
Discharge Plan Disposition Patient Disposition: Home Discharge Details Clinical Impression: Acute epigastric pain, Periumbilical hernia, Umbilical hernia Primary Care Provider: Johny Valentin ED Provider: Larry Russell Home Meds and New Rx's Prescriptions: Continued ergocalciferol (vitamin D2) 1,250 mcg (50,000 unit) capsule 1,250 mcg PO QWEEK dapagliflozin propanediol [Farxiga] 5 mg tablet 5 mg PO DAILY hydrocodone-acetaminophen 5-325 mg tablet 1 tab PO TID PRN insulin glargine [Lantus Solostar U-100 Insulin] 100 unit/mL (3 mL) insulin pen 10 unit subcut QPM rosuvastatin 10 mg tablet 10 mg PO DAILY cholecalciferol (vitamin D3) 50 mcg (2,000 unit) capsule 50 mcg PO DAILY epinephrine [EpiPen 2-Seven] 0.3 MG/0.3 ML auto-injector 0.3 mg IM DIRECTED PRN isosorbide mononitrate 30 mg tablet extended release 24 hr 30 mg PO DAILY Patient Comments: take 1 tablet by mouth every morning clopidogrel 75 mg tablet 75 mg PO DAILY Patient Comments: take 1 tablet by mouth once daily acetaminophen [Tylenol Extra Strength] 500 mg Tablet 1,000 mg PO Q4-5H nitroglycerin 0.4 mg Tablet, Sublingual 0.4 mg sublingual Q5 MIN PRN X3 PRN hydroxyzine HCl 25 mg tablet 50 mg PO HS Patient Comments: TAKE 1 TABLET BY MOUTH NIGHTLY NEEDED FOR ANXIETY AND SLEEP Entresto 24-26 mg Tablet 0.5 tab PO BID aspirin 81 mg Capsule,Delayed Release(Dr/Ec) 81 mg PO DAILY Discharge Instructions Instructions: Abdominal wall hernias Additional Instructions: You are seen in the emergency department for your abdominal pain. Your CAT scan shows that you have 2 very small hernias around your bellybutton. As we discussed if you develop recurrent pain, cannot eat or drink as result of nausea or vomiting or if you notice any skin changes around the area of your pain please return to the emergency department. Otherwise a referral has been placed to the general surgery clinic. Please follow-up with your primary care provider next week. HPI General Date/Time Provider Initiated Documentation: 10/15/24 12:46. HPI Narrative: MDM This is an uncomfortable appearing afebrile but mildly tachycardic 55-year-old female with umbilical hernia on exam and concern for possibility of incarceration for which patient will undergo CT scan assessment of lactate. Patient is status post remote appendectomy and cholecystectomy so my suspicion for these pathologies is low. She has no pain out of proportion to suggest necrotizing soft tissue infection. She has an elevated BMI and as result pancreatitis is certainly in the differential. Given history of coronary artery disease will obtain ECG and troponin testing. No left lower quadrant tenderness to suggest diverticulitis. No dysuria or frequency to suggest UTI. No history of anticoagulation nor bright red blood per rectum so not suspicious for acute GI bleed. No signs of strangulation given no skin changes. My suspicion is low for strangulation given no signs of intestinal obstruction. EKG showing normal sinus rhythm at a rate of 98. Left axis deviation no signs of LVH. T wave inversion in leads I and aVL. Mild upsloping ST segment elevation in V2. No prior for comparison. No acute injury pattern. [place] and QTc within normal limits. Mesenteric ischemia is also on differential however patient has not had any hematochezia. 1:45 PM Urinalysis nitrite leuk esterase negative. Patient does have glucosuria. CBC lacks anemia thrombocytopenia leukocytosis. Patient does have lactic acidosis with elevation 3.0 mmol/L. 2:30 PM Very mild hyponatremia. Patient does have elevated glucose however no anion gap. Normal bicarbonate?test not consistent with DKA. No PATRICE. Reassuring normal lipase. Troponin reassuring. CT scan read as showing tiny fat only right periumbilical hernia without bowel loops in small fat-containing umbilical hernia. No transition points. 3 PM Patient with persistent abdominal pain and for which patient required IV morphine. Given her history of coronary artery disease I am concerned for the possibility of mesenteric ischemia as patient's tiny fat-containing periumbilical hernia does not seem consistent with her pain. It is certainly also possible that she is intermittently incarcerating her hernias. Will repeat lactate. 4:19 PM Patient passed a p.o. challenge in the ED. she continues to feel well. Her lactate returned within normal limits. We discussed outpatient follow-up. I asked health coordinator patient the patient seen by general surgery in the next 2 weeks. I reviewed the patient's CT scan with general surgery, Dr. Cheung. He did not feel that the patient's small hernias would likely have caused lactic acidosis. Given her improved symptoms he agreed that she was appropriate for empiric trial of discharge with expectant outpatient management. HPI This is a patient with a history of double heart bypass, cholecystectomy, appendectomy, and hysterectomy presenting with abdominal pain. The patient reports experiencing worsening abdominal pain over the past 2 days. The pain is described as a combination of ripping and tearing sensations, kenneth to being punched or stabbed. It is localized across the upper part of her stomach and is sensitive to touch, giving the impression of something poking. The pain intensifies with movement and subsides when she remains still. She also reports nausea and has not slept in 2 days due to the pain. Her primary care physician suspects a hernia, but this diagnosis is not confirmed. She was advised to seek emergency care if her condition deteriorated, which it has. She has tried applying pressure to the area, but this exacerbates her chest discomfort due to a previous double heart bypass. She reports no chest pain or breathing difficulties. She also reports no burning sensation during urination. Her blood pressure was recorded as 138 recently. She has no history of blood clots in her legs or lungs. PAST SURGICAL HISTORY: - Double heart bypass in 2019 - Cholecystectomy - Appendectomy - Hysterectomy Exam General: Well-appearing in no acute distress speaking in complete sentences. Head: Normocephalic, atraumatic. Eye: Extraocular eye movements intact. No conjunctival injection. No scleral icterus. Ear, nose, mouth, throat: Grossly normal inspection. Normal voice, handling secretions normally. Neck: Trachea midline. Cardiovascular: Well-perfused distal extremities. Respiratory: Nonlabored respiration. Clear lungs bilaterally Gastrointestinal: Nondistended abdomen. Soft. Reducible umbilical hernia. No skin changes. Mild epigastric tenderness. No rebound. No guarding. Musculoskeletal: No edema. Moving all 4 extremities spontaneously. Skin: Normal for age and race, grossly normal temperature and turgor. No acute rash. Neurologic: Alert and appropriate, no apparent acute deficits. Psychiatric: Mood and manner are appropriate. Grooming and personal hygiene are appropriate. Related Data Home Medications ?Medication ?Instructions ?Recorded ?Confirmed epinephrine 0.3 mg/0.3 mL 0.3 mg IM DIRECTED PRN 04/16/16 10/15/24 injection, auto-injector (EpiPen 2-Seven) acetaminophen 500 mg tablet 1,000 mg PO Q4-5H 04/12/20 10/15/24 (Tylenol Extra Strength) aspirin 81 mg capsule,delayed 81 mg PO DAILY 04/12/20 10/15/24 release clopidogrel 75 mg tablet 75 mg PO DAILY 04/12/20 10/15/24 hydroxyzine HCl 25 mg tablet 50 mg PO HS 04/12/20 10/15/24 isosorbide mononitrate 30 mg 30 mg PO DAILY 04/12/20 10/15/24 tablet,extended release 24 hr nitroglycerin 0.4 mg sublingual 0.4 mg sublingual Q5 MIN PRN X3 PRN 04/12/20 10/15/24 tablet sacubitril 24 mg-valsartan 26 mg 0.5 tab PO BID 04/12/20 10/15/24 tablet (Entresto) cholecalciferol (vitamin D3) 50 50 mcg PO DAILY 04/28/24 10/15/24 mcg (2,000 unit) capsule dapagliflozin propanediol 5 mg 5 mg PO DAILY 04/28/24 10/15/24 tablet (Farxiga) ergocalciferol (vitamin D2) 1,250 1,250 mcg PO QWEEK 04/28/24 10/15/24 mcg (50,000 unit) capsule hydrocodone 5 mg-acetaminophen 325 1 tab PO TID PRN 04/28/24 10/15/24 mg tablet insulin glargine 100 unit/mL (3 10 unit subcut QPM 04/28/24 10/15/24 mL) subcutaneous pen (Lantus Solostar U-100 Insulin) rosuvastatin 10 mg tablet 10 mg PO DAILY 04/28/24 10/15/24 Allergies Allergy/AdvReac Type Severity Reaction Status Date / Time bee pollen Allergy Severe Anaphylaxsi Verified 10/15/24 14:11 s mushroom Allergy Severe Anaphylaxsi Verified 10/15/24 14:11 s Penicillins Allergy Severe Anaphylaxsi Verified 10/15/24 14:11 s doxycycline Allergy Intermediate Hives Verified 10/15/24 14:11 sumatriptan (From Imitrex) Allergy Intermediate Skin Rash Verified 10/15/24 14:11 sumatriptan succinate (From Allergy Intermediate Skin Rash Verified 10/15/24 14:11 Imitrex) tramadol Allergy Intermediate Hives Verified 10/15/24 14:11 erythromycin base Allergy Mild Hives Verified 10/15/24 14:11 (Erythromycin Base) gabapentin AdvReac Intermediate Skin Rash Verified 10/15/24 14:11 General Stated Complaint: Abd Prob JACIEL: 3 Course Vital Signs Vital signs: Vital Signs Temperature 37.1 C 10/15/24 12:43 Pulse 102 H 10/15/24 12:43 Respiratory Rate 22 10/15/24 12:43 Blood Pressure 151/99 H 10/15/24 12:43 Pulse Oximetry 98 10/15/24 12:43 Temperature 37.1 C 10/15/24 12:43 Pulse 102 H 10/15/24 12:43 Respiratory Rate 22 10/15/24 12:43 Blood Pressure 151/99 H 10/15/24 12:43 Blood Pressure Position Sitting 10/15/24 12:43 Pulse Oximetry 98 10/15/24 12:43 Oxygen Delivery Method Room Air 10/15/24 12:43 Oxygen Flow Rate 0 10/15/24 12:43 Pain Level 8 10/15/24 12:43 PFSH All Active Problems (Updated 10/15/24 @ 16:21 by Larry Russell MD) Umbilical hernia (Acute) Periumbilical hernia (Acute) Acute epigastric pain (Acute) Amplified musculoskeletal pain (Acute) Stiffness of left shoulder joint (Acute) Arthritis of left shoulder region (Acute) Coronary atherosclerosis (Acute) s/p stenting 04/01/24, on Plavix CHF (congestive heart failure) (Chronic) No-show for appointment (Acute) Cough (Acute) Medical History Obesity Chronic back pain Seizures Hidradenitis axillaris Surgical History section Abdominal hysterectomy Cholecystectomy Bilateral salpingectomy with oophorectomy Appendectomy Social History Smoking/Tobacco Use Status: Current every day Tobacco Type: cigarettes Smoking risk assessment performed?: Yes Alcohol Intake: never Drug use: Occasionally Substance use type: marijuana Housing: house Do you feel safe at home: Yes Do you feel safe in your relationship?: Yes
--- NOTE | 2024-10-15 13:00 | RT.EKG_ITS ---
APPROVED REPORT Exam: Resting ECG Reason for Exam: Epigastric pain Patient Location: E HR:98 bpm ECG Measurements Heart Rate 98 AXIS ND 131 P 61 QRSd 94 QRS -23 QT 369 T 98 QTc 470 Conclusion Sinus rhythm...normal P axis, V-rate 60- 99 Probable left atrial enlargement...P >50mS, <-0.10mV V1 Anteroseptal infarct, age indeterminate...Q >35mS, T neg, V1-V2 No Occlusion VA
--- NOTE | 2024-10-15 13:00 | DI.CT_ITS ---
Exam(s) CT ABDOMEN PELVIS W EXAM: CT ABDOMEN PELVIS W CLINICAL HISTORY: Abdominal pain concerning for incarcerated hernia. TECHNIQUE: Imaging Protocol: Axial computed tomography images with coronal and sagittal reformatted images were created and reviewed CONTRAST MATERIAL: Intravenous: Omnipaque-350 100cc Oral: None COMPARISON: Prior CT scan 11/08/2023. FINDINGS: VISUALIZED LUNG BASES: No nodules nor pleural effusions evident. Sternotomy wires again noted ABDOMEN: GI: There is again noted evidence of prior cholecystectomy, hysterectomy and prior appendectomy. There is no evidence of bowel obstruction, free air, nor abscess. LIVER: There are no focal hepatic lesions evident. No dilated intrahepatic ducts. GALLBLADDER/BILIARY: Is again noted be surgically absent. CBD is not dilated. PANCREAS: No evidence of pancreatic mass nor dilatation of the pancreatic duct. SPLEEN: Spleen is not enlarged. No obvious intrasplenic lesions. Splenic and portal veins are patent. ADRENALS: There are no significant adrenal masses. KIDNEYS:No cysts evident. No solid renal masses. No calculi nor hydronephrosis.. ABDOMINAL AORTA: Calcified and moderate atherosclerotic involvement of the aorta and common iliac arteries. No evidence of aneurysm of these vessels. LYMPH NODES:There is no retroperitoneal nor paraaortic adenopathy. ABDOMINAL WALL: Small fat only containing anterior abdominal wall umbilical hernia. Does not contain bowel loops. There is also a tiny fat only containing right paraumbilical hernia with hernia sac 1 cm and not containing bowel loops. No other anterior abdominal hernias evident. There are no inguinal hernias. There is some mild subcutaneous streaking on the right side which is possibly related to prior port site. There is no obvious hernia at this level. PELVIS: GI: The appendix is surgically absent.There is no significant sigmoid diverticular disease. LYMPH NODES: There is no intrapelvic nor inguinal adenopathy. REPRODUCTIVE: Uterus is surgically absent. There are no abnormal adnexal masses nor free fluid in the pelvis. URINARY BLADDER: Urinary bladder wall is mildly thickened uniform fashion either due to cystitis or under distension. There are no intraluminal focal masses in the bladder and no intraluminal radiopaque calculi. The pelvic ureters are not dilated OSSEOUS: No fractures and no significant osseous lesions. IMPRESSION: 1. There is a tiny fat only containing right paraumbilical hernia which does not contain bowel loops and there is also a small fat only containing umbilical hernia which also does not contain bowel loops. There is also no evidence of transition point in the bowel near these hernias. There is no bowel obstruction nor ascites. 2. Again noted is evidence of previous cholecystectomy, appendectomy, and hysterectomy. 3. Mild uniform thickening of the urinary bladder wall. 4. Moderate atherosclerotic involvement of the abdominal aorta and iliac arteries. No aneurysms evident. Report called by myself to ER physician 10/15/2024 at 2:15 p.m. RADIATION DOSE DELIVERED: 754.74mGy.cm Total DLP DATA REPOSITORY: All CT scans at this facility are submitted to the National Radiology Data Registry (NRDR) Dose Index Registry (DIR) with the [employer] (ACR). RADIATION OPTIMIZATION: All CT scans at this facility use at least one of these dose optimization techniques: automated exposure control; mA and/or kV adjustment per patient size (includes targeted exams where dose is matched to clinical indication); or iterative reconstruction.
[2024-10-15 13:25] LABS: Abs Immature Grans 0.02 10^3/uL (0.0-0.06); HCT 43.5 % (36.0-46.0); HGB 15.2 g/dL (11.2-15.7); Immature Grans % 0.2 %; MCH 30.3 pg (27.0-33.0); MCHC 34.9 % (32.0-36.0); MCV 87 fL (80-95); MPV 9.3 fL (8.0-11.0); Platelet Count 311 10^3/uL (130-400); RBC 5.01 10^6/uL (3.93-5.22); RDW 11.8 % (11.7-14.6); RDW-SD 37.7 fL; WBC 9.04 10^3/uL (4.4-10.8)
[2024-10-15 13:41] LABS: Glucose 500 mg/dL (Negative)
[2024-10-15] MEDS: Normal Saline 1,000 ML 1000 ML IV (13:46)
[2024-10-15] MEDS: Ondansetron 4 MG/2 ML VIAL IVP (13:48)
[2024-10-15] MEDS: Ketorolac 15 MG/ML VIAL IVP (13:48)
[2024-10-15 13:50] LABS: ALT 22 U/L (14-59); AST 17 U/L (15-37); Albumin 3.7 g/dL (3.4-5.0); Alkaline Phosphatase 106 U/L (46-116); Anion Gap 7.7 mmol/L (3-11); BUN 13 mg/dL (7-18); Bilirubin, Total 0.4 mg/dL (0.2-1.0); CO2 28.3 mmol/L (21.0-32.0); Calcium 9.0 mg/dL (8.5-10.1); Chloride 98 mmol/L (98-107); Estimated GFR 105.30 (mL/min/1.73m2); Glucose 374 mg/dL (74-106); Lipase 33 U/L (<78); Potassium 4.6 mmol/L (3.5-5.1); Sodium 134 mmol/L (136-145); Total Protein 7.5 g/dL (6.4-8.2)
[2024-10-15] MEDS: Normal Saline - Diluent 50 ML VIAL IJ (13:56)
[2024-10-15] MEDS: Omnipaque 350 MG/ML 100 ML BTL IJ (13:57)
[2024-10-15 14:07] LABS: Troponin I 8 ng/L (<or=51)
[2024-10-15 14:59] LABS: Troponin I 8 ng/L (<or=51)
[2024-10-15] MEDS: MORPHine 4 MG/ML SYR IVP (15:00)
[2024-10-15 15:18] LABS: Troponin I 9 ng/L (<or=51)
== END 2024-10-15 16:34 | disposition home or self-care (01) ==
PROVIDERS: Emergency Provider Emergency Medicine; PCP Family Medicine
DX: K42.9 Umbilical hernia without obstruction or gangrene (principal); R10.13 Epigastric pain; I25.10 Atherosclerotic heart disease of native coronary artery without angina pectoris; Z95.1 Presence of aortocoronary bypass graft; Z95.5 Presence of coronary angioplasty implant and graft; Z79.01 Long term (current) use of anticoagulants; Z79.82 Long term (current) use of aspirin; Z90.49 Acquired absence of other specified parts of digestive tract; Z90.710 Acquired absence of both cervix and uterus; F17.210 Nicotine dependence, cigarettes, uncomplicated
CPT/HCPCS: 36415; 80053; 81025; 83690; 93005; 99285; 74177; 81003; 83605; 84484; 85025; 93010; 99284; J1885; J2270; J2405; J3490